=== PATIENT | male | born 1935 | race Caucasian/White ===

== ENCOUNTER 2019-10-25 09:49 | Outpatient (CLI) | payer MEDICARE, OTHER, SELFPAY ==
--- NOTE | ~2019-10-25 | CT_ITS ---
EXAMINATION: CT soft tissue neck w con DATE: 10/25/2019 10:43 INDICATION: Chronic hoarseness. Dysphagia. TECHNIQUE: Computed tomography (CT) of the neck was performed with 75 mL Omnipaque-350 intravenous co ntrast. Automated exposure control and iterative reconstruction technique were employed. The dose-leif gth product was 629.69 mGy-cm. COMPARISON: Chest 2 views 07/19/2017 FINDINGS: There are moderate-sized right and small left pleural effusions. There is mild atelectasis in the visualized portions of the lungs. Calcified left lung nodules and calcified mediastinal lymph nodes are consistent with old granulomatous disease. There is no cervical lymphadenopathy. There is m ild mucosal thickening in the paranasal sinuses. There is moderate cervical spondylosis. There are br idging endplate osteophytes at multiple levels in the spine, consistent with diffuse idiopathic skele fernando hyperostosis (DISH). IMPRESSION: 1. No etiology for the patient's symptoms. 2. Moderate-sized right and small left pleural effusions. Reviewed, dictated and finalized at location A. 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
[2019-10-25 10:29] LABS: Estimated Glomerular Filt Rate 58
== END 2019-10-25 09:50 | disposition home or self-care (01) ==
PROVIDERS: PCP Internal Medicine; Visit Provider Internal Medicine
DX: R13.10 Dysphagia, unspecified (principal); R49.0 Dysphonia
CPT/HCPCS: 70491; Q9965

== ENCOUNTER 2020-01-18 09:36 | Outpatient (CLI) | payer MEDICARE, OTHER, SELFPAY ==
--- NOTE | ~2020-01-18 | XR_ITS ---
EXAMINATION: XR chest 2V DATE: 01/18/2020 11:06 INDICATION: Congestive heart failure. TECHNIQUE: Frontal and lateral views of the chest were obtained. COMPARISON: Chest 2 views 07/19/2017 FINDINGS: There is a moderate-sized right pleural effusion. There is a small left pleural effusion. T here are airspace opacities at the lung bases, right worse than left. No pneumothorax. The heart size is normal. IMPRESSION: 1. Moderate-sized right and small left pleural effusions. 2. Airspace opacities at the lung bases, consistent with atelectasis or less likely pneumonia. Reviewed, dictated and finalized at location A. IMPRESSION: 1. Moderate-sized right and small left pleural effusions. 2. Airspace opacities at the lung bases, consistent with atelectasis or less li makenzie pneumonia.
--- NOTE | 2020-01-18 09:50 | ECHO_ITS ---
Patient Info Name: Noel Pierre Age: 84 years : 1935 Gender: Male Ht: 73 in Wt: 220 lbs BSA: 2.29 m2 HR: 123 bpm BP: 185 / 85 mmHg Heart Rhythm: Sinus Rhythm Technical Quality: Fair Exam Date: 01/18/2020 9:50 AM Exam Location: [facility] Patient Status: Outpatient Admit Date: 01/18/2020 Staff Ordering Physician: Audra Myers MD Mosaic Tile Maker: Sangeetha Jones RDCS Attending Provider: Audra Myers MD Referring Physician: Louis BOWERS; Exam Type: CA echo dop color flow w con Study Info Indications I50.22 - Chronic systolic (congestive) heart failure Complete two-dimensional, color flow and Doppler transthoracic echocardiogram is performed. Strain analysis performed. History/Risk Factors Hypertension: Yes Dyslipidemia: Yes Congenital Heart Disease (CHD): No Peripheral Arterial Disease (PAD): No Myocardial Infarction (CT): No Chronic Lung Disease: No Obesity: Yes Renal Disease: No Coronary Artery Disease (CAD) Yes Congestive Heart Failure (CHF): Hx CHF Cardiomyopathy/LV Systolic Dysfunction: No Diabetes Mellitus: No COPD: On Meds Tobacco Use: Former Cerebrovascular Disease: No Deep Vein Thrombosis (DVT): None Dialysis: None Frailty Scale (CSHA): 4: Vulnerable Cardiac Arrest: No Prior Interventions Pacemaker: No PCI: No CABG: No ICD: No PV Intervention: None Heart Transplant: No Summary 1. Left ventricular chamber dimension is normal. 2. Definity contrast administered improved wall motion interpretation. 3. Left ventricular systolic function is normal, estimated at 50-55%. 4. The left ventricular diastolic function is grade III diastolic dysfunction. 5. E/e' 21 is elevated. 6. Left atrial chamber dimension is moderately enlarged. 7. Right atrial chamber dimension is moderately enlarged. 8. There is trace aortic valve regurgitation. 9. There is moderate mitral valve regurgitation. 10. There is mild to moderate tricuspid valve regurgitation. 11. Mild pulmonary hypertension, estimated pulmonary arterial systolic pressure is 44 mmHg. 12. There is trace pulmonic regurgitation. 13. Linear artifact in IVC, consider catheter in IVC. Left Ventricle E/e' 21 is elevated. Definity contrast administered improved wall motion interpretation. Left ventricular chamber dimension is normal. Left ventricular systolic function is normal, estimated at 50-55%. The left ventricular diastolic function is grade III diastolic dysfunction. Right Ventricle Right ventricular chamber dimension is normal. Right ventricular systolic function is normal. Left Atria Left atrial chamber dimension is moderately enlarged. Right Atria Right atrial chamber dimension is moderately enlarged. Aortic Valve The aortic valve is trileaflet. There is no aortic valve stenosis. There is trace aortic valve regurgitation. Pulmonic Valve There is trace pulmonic regurgitation. Mitral Valve There is no mitral valve stenosis. There is moderate mitral valve regurgitation. Tricuspid Valve There is mild to moderate tricuspid valve regurgitation. Mild pulmonary hypertension, estimated pulmonary arterial systolic pressure is 44 mmHg. Pericardium/Pleural There is no pericardial effusion. Inferior Vena Cava Normal inferior vena cava with >50% collapse upon inspiration consistent with normal right atrial pressure, 5 mmHg. Linear artif
[2020-01-18 10:00] LABS: Appearance Urine Clear (Clear); Basophils Absolute Auto 0.03 K/mm3 (0.00-0.10); Basophils Percent Auto 0.7 % (0.0-1.0); Bilirubin Urine Negative (Negative); Color Urine Yellow (Yellow); Eosinophils Absolute Auto 0.17 K/mm3 (0.02-0.50); Eosinophils Percent Auto 3.8 % (1.0-6.0); Glucose Urine UA Negative (Negative); Hematocrit 36.8 % (37.0-46.0); Hemoglobin 12.4 g/dL (12.4-15.3); Immature Granulocyte Absolute 0.01 K/mm3 (0.00-0.00); Immature Granulocyte Percent A 0.2 % (0.0-0.0); Ketones Urine Negative (Negative); Leukocyte Esterase Ur Negative LEU/UL (Negative); Lymphocytes Absolute Auto 0.88 K/mm3 (1.10-4.50); Lymphocytes Percent Auto 19.7 % (18.0-42.0); Mean Corpuscular HGB Conc 33.7 g/dL (32.0-36.0); Mean Corpuscular Hemoglobin 32.8 pg (27.0-31.0); Mean Corpuscular Volume 97.4 fL (78.0-102.0); Mean Platelet Volume 10.4 fl (8.7-11.0); Monocytes Absolute Auto 0.41 K/mm3 (0.10-0.90); Monocytes Percent Auto 9.2 % (2.0-11.0); Neutrophils Percent Auto 66.4 % (50.0-70.0); Nitrate Urine Negative (Negative); Platelet Count Result 184 K/mm3 (150-420); Protein Urine Trace (Negative); Red Blood Count 3.78 M/mm3 (4.70-6.10); Specific Grav Ur 1.025 (1.010-1.020); Urobilinogen Urine 0.2 mg/dL (0.2-1.0); White Blood Count 4.5 K/mm3 (4.8-10.8)
[2020-01-18 10:04] LABS: Hemoglobin A1C 5.7 % (<5.7)
[2020-01-18 10:11] LABS: BNP 476 pg/mL (0-100); Creatinine Urine 116.82 mg/dL (40-278)
[2020-01-18 10:18] LABS: Add Urine Microscopic? YES; Bacteria Urine Trace /hpf; Blood Urine Trace-Intact (Negative); RBC Urine 0-2 /hpf (0-2); Squamous Epithelial Cell Urine Few /hpf (Few); WBC Urine 0-3 /hpf (0-3)
[2020-01-18 10:19] LABS: Microalbumin Urine Random 15.3 mg/L
[2020-01-18 10:37] LABS: Alanine Aminotransferase 19 U/L (16-63); Alkaline Phosphatase 140 U/L (46-116); Anion Gap 11.5 mmol/L (7-16); Aspartate Amino Transferase 15 U/L (15-37); Bilirubin,Total 0.4 mg/dL (0.00-1.00); Blood Urea Nitrogen 12 mg/dL (7-18); Carbon Dioxide 27 mmol/L (21-32); Chloride 109 mmol/L (98-108); Cholesterol 98 mg/dL (0-200); Creatine Kinase 39 U/L (39-308); Estimated Glomerular Filt Rate > 60; Ferritin 235 ng/mL (26-388); Glucose 100 mg/dL (70-99); HDL Direct 39 mg/dL (40-60); Iron 59 ug/dL (65-175); LDL Cholesterol Calculated 50 mg/dL (<130); Osmolality Calculated 297 mOsm/kg (285-295); Percent Iron Saturation 34 % (12-57); Potassium 3.5 mmol/L (3.5-5.1); Sodium 144 mmol/L (136-145); Total Protein 6.6 g/dL (6.4-8.2); Triglycerides 44 mg/dL (0-150)
== END 2020-01-18 09:37 | disposition home or self-care (01) ==
LOC: CHSIMG 09:38
PROVIDERS: PCP Internal Medicine; Visit Provider Internal Medicine
DX: E78.2 Mixed hyperlipidemia (principal); I50.22 Chronic systolic (congestive) heart failure; R73.01 Impaired fasting glucose; D50.9 Iron deficiency anemia, unspecified; I11.0 Hypertensive heart disease with heart failure
CPT/HCPCS: 36415; 71046; 80053; 80061; 81001; 82043; 82550; 82728; 83036; 83540; 83550; 83880; 85025; C8929

== ENCOUNTER 2020-01-31 07:35 | Outpatient (CLI) | payer MEDICARE, OTHER, SELFPAY ==
--- NOTE | ~2020-01-31 | CT_ITS ---
EXAMINATION:CT chest w con DATE: 01/31/2020 08:03 INDICATION: Pleural effusion. TECHNIQUE: Computed tomography (CT) of the chest was performed with 75 mL Omnipaque 350 intravenous c ontrast. Automated exposure control and iterative reconstruction technique were employed. The dose-le ngth product (DLP) was 308.04 mGy-cm. COMPARISON: Chest 2 views 01/18/2020 FINDINGS: There are moderate-sized right and small left pleural effusions. There are airspace opaciti es in right middle lobe and right lower lobe with volume loss, likely atelectasis. A calcified left l frida nodule and calcified left hilar and mediastinal lymph nodes are consistent with old granulomatous disease. There is a 4 mm nodule at left major fissure, likely benign. There is mild dependent atelec tasis in left lung. There is bilateral gynecomastia. The heart size is normal. There are coronary art kaur calcifications. No pericardial effusion. There are surgical changes of the stomach and small wade l. Partially visualized is a 3.0 cm cyst in left kidney. Partially visualized is a 6.9 x 6.0 cm mass involving the head of the pancreas with small central calcifications. Pneumobilia is noted, likely se condary to sphincterotomy. There are bridging endplate osteophytes at multiple levels in the spine, c onsistent with diffuse idiopathic skeletal hyperostosis (DISH). IMPRESSION: 1. Moderate-sized right and small left pleural effusions. 2. Partially visualized 6.9 cm pancreatic mass with central calcifications. The differential diagnosi s includes serous cystadenoma and neuroendocrine tumor. Abdomen MRI without and with contrast is abilio mmended. Reviewed, dictated and finalized at location A. IMPRESSION: 1. Moderate-sized right and small left pleural effusions. 2. Partially visualized 6.9 cm pancreatic mass with central calcifications. The differential diagnosis includes serous cystadenoma and neuroendocrine tumor. A bdomen MRI without and with contrast is recommended.
== END 2020-01-31 07:36 | disposition home or self-care (01) ==
PROVIDERS: PCP Internal Medicine; Visit Provider Internal Medicine
DX: J90 Pleural effusion, not elsewhere classified (principal)
CPT/HCPCS: 71260; Q9965

== ENCOUNTER 2020-02-28 08:13 | Outpatient (CLI) | payer MEDICARE, OTHER, SELFPAY ==
--- NOTE | ~2020-02-28 | XR_ITS ---
EXAMINATION: XR chest 2V DATE: 02/28/2020 08:44 INDICATION: Congestive heart failure TECHNIQUE: PA and lateral views of the chest are obtained. COMPARISON: 01/18/2020 FINDINGS: A moderate size right pleural effusion persists without significant change. A trace left pl eural effusion is noted. Bibasilar airspace opacities are stable, right greater than left. The heart size is normal. There is no pneumothorax. There are bridging osteophytes at multiple levels in the sp ine, consistent with diffuse idiopathic skeletal hyperostosis (DISH). IMPRESSION: 1. Moderate size right and small left pleural effusions without significant change. 2. Stable bibasilar airspace opacities, consistent with atelectasis or less likely pneumonia. Reviewed, dictated and finalized at location A. IMPRESSION: 1. Moderate size right and small left pleural effusions without significant jimena nge. 2. Stable bibasilar airspace opacities, consistent with atelectasis or less lik adi pneumonia.
[2020-02-28 08:45] LABS: BNP 360 pg/mL (0-100)
[2020-02-28 11:12] LABS: Anion Gap 9.5 mmol/L (7-16); Blood Urea Nitrogen 15 mg/dL (7-18); Carbon Dioxide 29 mmol/L (21-32); Chloride 108 mmol/L (98-108); Estimated Glomerular Filt Rate 56; Glucose 93 mg/dL (70-99); Osmolality Calculated 296 mOsm/kg (285-295); Potassium 3.5 mmol/L (3.5-5.1); Sodium 143 mmol/L (136-145)
== END 2020-02-28 08:14 | disposition home or self-care (01) ==
PROVIDERS: PCP Internal Medicine; Visit Provider Internal Medicine
DX: I50.9 Heart failure, unspecified (principal)
CPT/HCPCS: 36415; 71046; 80048; 83880

== ENCOUNTER 2020-04-17 08:06 | Outpatient (CLI) | payer MEDICARE, OTHER, SELFPAY ==
--- NOTE | ~2020-04-17 | XR_ITS ---
EXAMINATION: XR chest 2V DATE: 04/17/2020 08:34 INDICATION: Pleural effusion. Shortness of breath. TECHNIQUE: Frontal and lateral views of the chest were obtained on 3 radiographs. COMPARISON: Chest 2 views 02/28/2020, chest CT 01/31/2020 FINDINGS: There are moderate-sized right and tiny left pleural effusions. There are airspace opacitie s at the lung bases. No pneumothorax. The heart size is normal. There is a stable compression fractur e at L1. IMPRESSION: 1. Stable moderate-sized right and tiny left pleural effusions. 2. Stable airspace opacities at the lung bases, consistent with atelectasis or less likely pneumonia. Reviewed, dictated and finalized at location B.
[2020-04-17 08:54] LABS: BNP 319 pg/mL (0-100)
[2020-04-17 09:21] LABS: Anion Gap 6 mmol/L (8-16); Blood Urea Nitrogen 15 mg/dL (7-18); Calcium 8.2 mg/dL (8.5-10.1); Carbon Dioxide 28 mmol/L (21-32); Chloride 109 mmol/L (98-108); Estimated Glomerular Filt Rate > 60; Glucose 92 mg/dL (70-99); Osmolality Calculated 296 mOsm/kg (285-295); Potassium 3.8 mmol/L (3.5-5.1); Sodium 143 mmol/L (136-145)
== END 2020-04-17 08:07 | disposition home or self-care (01) ==
LOC: CHSLAB 08:08
PROVIDERS: PCP Internal Medicine; Visit Provider Internal Medicine
DX: J90 Pleural effusion, not elsewhere classified (principal); I50.22 Chronic systolic (congestive) heart failure
CPT/HCPCS: 36415; 71046; 80048; 83880

== ENCOUNTER 2020-07-31 08:59 | Outpatient (CLI) | payer MEDICARE, OTHER, SELFPAY ==
--- NOTE | ~2020-07-31 | XR_ITS ---
EXAMINATION: XR chest 2V DATE: 07/31/2020 09:21 INDICATION: Pleural effusion. TECHNIQUE: Frontal and lateral views of the chest were obtained. COMPARISON: Chest 2 views 04/17/2020 FINDINGS: There are moderate-sized right and small left pleural effusions. There are airspace opaciti es at the lung bases. No pneumothorax. The heart size is normal. There is a chronic compression fract ure of L1. IMPRESSION: 1. Worsened moderate-sized right and small left pleural effusions. 2. Airspace opacities at the lung bases, consistent with atelectasis or less likely pneumonia. Reviewed, dictated and finalized at location B. 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 Worsened moderate-sized right and small left pleural effusions. 2. Airspace opacities at the lung bases, consistent with atelectasis or less li makenzie pneumonia.
[2020-07-31 09:12] LABS: Appearance Urine Clear (Clear); Bilirubin Urine Negative (Negative); Color Urine Yellow (Yellow); Glucose Urine UA Negative (Negative); Ketones Urine Negative (Negative); Leukocyte Esterase Ur Negative (Negative); Nitrate Urine Negative (Negative); Protein Urine Negative (Negative); Urobilinogen Urine 0.2 mg/dL (0.2-1.0); pH Urine 5.5 (5.0-8.0)
[2020-07-31 09:13] LABS: Basophils Absolute Auto 0.04 K/mm3 (0.00-0.10); Basophils Percent Auto 0.8 % (0.0-1.0); Eosinophils Absolute Auto 0.22 K/mm3 (0.02-0.50); Eosinophils Percent Auto 4.6 % (1.0-6.0); Hematocrit 36.6 % (37.0-46.0); Hemoglobin 11.9 g/dL (12.4-15.3); Immature Granulocyte Absolute 0.02 K/mm3 (0.00-0.00); Immature Granulocyte Percent A 0.4 % (0.0-0.0); Lymphocytes Absolute Auto 1.01 K/mm3 (1.10-4.50); Mean Corpuscular HGB Conc 32.5 g/dL (32.0-36.0); Mean Corpuscular Hemoglobin 33.4 pg (27.0-31.0); Mean Corpuscular Volume 102.8 fL (78.0-102.0); Mean Platelet Volume 9.8 fl (8.7-11.0); Monocytes Absolute Auto 0.48 K/mm3 (0.10-0.90); Neutrophils Absolute Auto 3.1 K/mm3 (1.7-7.2); Neutrophils Percent Auto 63.2 % (50.0-70.0); Platelet Count Result 195 K/mm3 (150-420); Red Blood Count 3.56 M/mm3 (4.70-6.10); Red Cell Distribution Width 13.6 % (11.6-14.4); White Blood Count 4.8 K/mm3 (4.8-10.8)
[2020-07-31 09:20] LABS: Add Urine Microscopic? YES; Blood Urine Trace-Intact (Negative); RBC Urine 0-2 /hpf (0-2); Squamous Epithelial Cell Urine Occasional /hpf (Few); WBC Urine 0-3 /hpf (0-3)
[2020-07-31 09:21] LABS: Bacteria Urine Trace /hpf
[2020-07-31 09:24] LABS: Hemoglobin A1C 5.3 % (<5.7)
[2020-07-31 09:33] LABS: BNP 387 pg/mL (0-100)
[2020-07-31 10:02] LABS: Alanine Aminotransferase 17 U/L (16-63); Alkaline Phosphatase 136 U/L (46-116); Anion Gap 8 mmol/L (8-16); Aspartate Amino Transferase 13 U/L (15-37); Bilirubin,Total 0.4 mg/dL (0.00-1.00); Blood Urea Nitrogen 12 mg/dL (7-18); Calcium 8.3 mg/dL (8.5-10.1); Carbon Dioxide 29 mmol/L (21-32); Chloride 107 mmol/L (98-108); Cholesterol 102 mg/dL (0-200); Creatine Kinase 41 U/L (39-308); Estimated Glomerular Filt Rate 60; Ferritin 257 ng/mL (26-388); Glucose 96 mg/dL (70-99); HDL Direct 38 mg/dL (40-60); Iron 53 ug/dL (65-175); LDL Cholesterol Calculated 54 mg/dL (<130); Osmolality Calculated 297 mOsm/kg (285-295); Percent Iron Saturation 27 % (12-57); Prostate Specific Antigen 0.4 ng/mL (< OR = 4.0); Sodium 144 mmol/L (136-145); Total Protein 6.8 g/dL (6.4-8.2); Triglycerides 51 mg/dL (0-150)
== END 2020-07-31 09:00 | disposition home or self-care (01) ==
LOC: CHSLAB 09:01
PROVIDERS: PCP Internal Medicine; Visit Provider Internal Medicine
DX: I50.22 Chronic systolic (congestive) heart failure (principal); I10 Essential (primary) hypertension; R73.01 Impaired fasting glucose; E78.2 Mixed hyperlipidemia; Z12.5 Encounter for screening for malignant neoplasm of prostate; J90 Pleural effusion, not elsewhere classified
CPT/HCPCS: 36415; 71046; 80053; 80061; 81001; 82550; 82728; 83036; 83540; 83550; 83880; 84153; 85025; G0103

== ENCOUNTER 2020-09-23 11:08 | Outpatient (CLI) | payer MEDICARE, OTHER, SELFPAY ==
--- NOTE | ~2020-09-23 | XR_ITS ---
XR chest 2V DATE: 09/23/2020 11:37 INDICATION: Shortness of breath, weakness. Congestive heart failure. TECHNIQUE: 2 views COMPARISON: 07/31/2020 2 view chest FINDINGS: Moderate right pleural effusion, mildly diminished in size since 08/10/2020. There is assoc iated right lower lung infiltrate and/atelectasis. The lungs are otherwise clear. Bilateral hyperinflation. Borderline heart size. Coronary artery calcification. Aortic calcification. Diffuse osteopenia. [id number] anterior wedging of approximately L1, chronic. IMPRESSION: Moderate right pleural effusion, mildly improved since 07/31 2020; right basilar infiltrat e/atelectasis Reviewed, dictated and finalized at location A. 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
[2020-09-23 11:20] LABS: Basophils Absolute Auto 0.05 K/mm3 (0.00-0.10); Eosinophils Percent Auto 4.2 % (1.0-6.0); Hematocrit 37.7 % (37.0-46.0); Hemoglobin 12.3 g/dL (12.4-15.3); Immature Granulocyte Absolute 0.01 K/mm3 (0.00-0.00); Immature Granulocyte Percent A 0.2 % (0.0-0.0); Lymphocytes Absolute Auto 0.83 K/mm3 (1.10-4.50); Lymphocytes Percent Auto 17.4 % (18.0-42.0); Mean Corpuscular HGB Conc 32.6 g/dL (32.0-36.0); Mean Corpuscular Hemoglobin 33.7 pg (27.0-31.0); Mean Corpuscular Volume 103.3 fL (78.0-102.0); Mean Platelet Volume 10.1 fl (8.7-11.0); Monocytes Absolute Auto 0.39 K/mm3 (0.10-0.90); Monocytes Percent Auto 8.2 % (2.0-11.0); Neutrophils Absolute Auto 3.3 K/mm3 (1.7-7.2); Platelet Count Result 187 K/mm3 (150-420); Red Blood Count 3.65 M/mm3 (4.70-6.10); Red Cell Distribution Width 13.7 % (11.6-14.4); White Blood Count 4.8 K/mm3 (4.8-10.8)
[2020-09-23 11:40] LABS: BNP 345 pg/mL (0-100)
[2020-09-23 12:09] LABS: Anion Gap 9 mmol/L (8-16); Blood Urea Nitrogen 13 mg/dL (7-18); Calcium 7.7 mg/dL (8.5-10.1); Carbon Dioxide 25 mmol/L (21-32); Chloride 108 mmol/L (98-108); Estimated Glomerular Filt Rate 60; Ferritin 286 ng/mL (26-388); Glucose 119 mg/dL (70-99); Iron 79 ug/dL (65-175); Osmolality Calculated 295 mOsm/kg (285-295); Percent Iron Saturation 42 % (12-57); Potassium 3.7 mmol/L (3.5-5.1); Sodium 142 mmol/L (136-145)
[2020-09-23 12:16] LABS: Appearance Urine Clear (Clear); Bilirubin Urine Negative (Negative); Color Urine Yellow (Yellow); Glucose Urine UA Negative (Negative); Ketones Urine Negative (Negative); Leukocyte Esterase Ur Negative LEU/UL (Negative); Nitrate Urine Negative (Negative); Protein Urine Negative (Negative); Specific Grav Ur 1.025 (1.010-1.020); Urobilinogen Urine 0.2 mg/dL (0.2-1.0)
[2020-09-23 12:25] LABS: Add Urine Microscopic? YES; Blood Urine Trace-Intact (Negative); RBC Urine None seen /hpf (0-2); Squamous Epithelial Cell Urine Rare /hpf (Few); WBC Urine None seen /hpf (0-3)
[2020-09-23 12:26] LABS: Bacteria Urine None seen /hpf
== END 2020-09-23 11:09 | disposition home or self-care (01) ==
LOC: CHSLAB 11:10
PROVIDERS: PCP Internal Medicine; Visit Provider Internal Medicine
DX: N39.0 Urinary tract infection, site not specified (principal); I50.9 Heart failure, unspecified; D50.9 Iron deficiency anemia, unspecified
CPT/HCPCS: 36415; 71046; 80048; 81001; 82728; 83540; 83550; 83880; 85025

== ENCOUNTER 2021-01-20 06:43 | Inpatient (IN) | payer MEDICARE, OTHER, SELFPAY ==
[2021-01-20] VITALS (25 sets, daily range): BP systolic 90–117; BP diastolic 56–78; PULSE 70–138; RESP 9–25; TEMP 35.9–36.4; O2SAT 98–100
--- NOTE | 2021-01-20 | ECHO_ITS ---
Patient Info Name: Noel Pierre Age: 85 years : 1935 Gender: Male Ht: 70 in Wt: 218 lbs BSA: 2.24 m2 Heart Rhythm: Atrial Fibrillation Technical Quality: Poor Exam Date: 01/20/2021 1:00 PM Exam Location: [facility] Patient Status: Inpatient Admit Date: 01/20/2021 Staff Ordering Physician: Willis Corbett MD Balance Wheel Screw Hole Driller: Becca Wilkinson RDCS Attending Provider: Grace Tyson M.A., MD Exam Type: CA echo doppler color flow Study Info Indications R07.89 - Other chest pain Complete two-dimensional, color flow and Doppler transthoracic echocardiogram is performed with contrast to opacify the left ventricle and to improve the deliniation of the left ventricle endocardial borders. Contrast/Agitated Saline Contrast/Ag. Saline: Definity Amount: 4.00 ml History/Risk Factors Hypertension: Yes Dyslipidemia: Yes Congenital Heart Disease (CHD): No Peripheral Arterial Disease (PAD): No Myocardial Infarction (PR): No Chronic Lung Disease: No Obesity: Yes Renal Disease: No Coronary Artery Disease (CAD) Yes Congestive Heart Failure (CHF): Hx CHF Cardiomyopathy/LV Systolic Dysfunction: No Diabetes Mellitus: No COPD: On Meds Tobacco Use: Former Cerebrovascular Disease: No Deep Vein Thrombosis (DVT): None Dialysis: None Frailty Scale (CSHA): 4: Vulnerable Cardiac Arrest: No Prior Interventions Pacemaker: No PCI: No CABG: No ICD: No PV Intervention: None Heart Transplant: No Summary 1. Contrast injected to improve visualization. 2. Left ventricular chamber dimension is mildly enlarged. 3. Left ventricular systolic function is moderately reduced, estimated at 35-40%. 4. There is mild aortic valve sclerosis. 5. There is trace mitral valve regurgitation. 6. Biatrial dilation right greater than left. 7. compared with 2017 not much change. Left Ventricle Left ventricular chamber dimension is mildly enlarged. Left ventricular systolic function is moderately reduced, estimated at 35-40%. The left ventricular diastolic function is indeterminate. Contrast injected to improve visualization. Right Ventricle Right ventricular chamber dimension is mildly enlarged. Left Atria Left atrial chamber dimension is mildly enlarged. Right Atria Right atrial chamber dimension is moderately enlarged. Aortic Valve The aortic valve is trileaflet. There is mild aortic valve sclerosis. Pulmonic Valve The pulmonic valve is normal. Mitral Valve The mitral valve has normal leaflets. There is trace mitral valve regurgitation. The mitral valve annulus is mildly calcified. Tricuspid Valve The tricuspid valve leaflets are normal. Pericardium/Pleural The pericardium appears normal. Aorta The aortic root size at the sinus of Valsalva is normal. Left Ventricular Outflow Tract Name Value Normal LVOT 2D LVOT Diameter 2.2 cm LVOT Doppler LVOT Peak Velocity 70 cm/s LVOT Peak Gradient 2 mmHg
--- NOTE | ~2021-01-20 | XR_ITS ---
EXAMINATION: XR chest 2V DATE: 01/20/2021 07:25 INDICATION: Chest pain. Weakness. TECHNIQUE: Frontal and lateral views of the chest were obtained. COMPARISON: Chest 2 views 09/23/2020, chest CT 01/31/2020 FINDINGS: There is a moderate-sized right pleural effusion. There are airspace opacities at right nicole g base. No pneumothorax. The heart size is normal. IMPRESSION: 1. Chronic moderate-sized right pleural effusion. 2. Stable airspace opacities at right lung base, consistent with atelectasis versus pneumonia. Reviewed, dictated and finalized at location A. IMPRESSION: 1. Chronic moderate-sized right pleural effusion. 2. Stable airspace opacities at right lung base, consistent with atelectasis ve rsus pneumonia.
--- NOTE | 2021-01-20 06:52 | ECG_ITS ---
Measurements Intervals [place] Rate: 118 P: CA: 0 QRS: -74 QRSD: 148 T: 82 QT: 360 QTc: 506 Interpretive Statements ATRIAL FIBRILLATION WITH RAPID VENTRICULAR RESPONSE VENTRICULAR PREMATURE COMPLEX LEFT BUNDLE BRANCH BLOCK ABNORMAL ECG Electronically Signed On 01-20-2021 6:54:10 CDT by Izaiah Pathak D.O.
[2021-01-20 07:25] LABS: Basophils Percent Auto 0.6 % (0.2-1.2); Eosinophils Absolute Auto 0.2 K/mm3 (0-0.3); Eosinophils Percent Auto 3.2 % (0-4.4); Hematocrit 34.4 % (42.0-52.0); Hemoglobin 11.1 g/dL (14.0-18.0); Immature Granulocyte Absolute 0.01 K/mm3 (0.00-0.031); Immature Granulocyte Percent A 0.2 % (0-0.5); Lymphocytes Absolute Auto 0.83 K/mm3 (0.9-3.2); Lymphocytes Percent Auto 16.4 % (18.3-44.2); Mean Corpuscular HGB Conc 32.3 g/dl (32-36); Mean Corpuscular Hemoglobin 33.8 pg (26-34); Mean Corpuscular Volume 104.9 fl (80-100); Mean Platelet Volume 10.4 fl (7.4-10.4); Monocytes Absolute Auto 0.5 K/mm3 (0.1-0.6); Monocytes Percent Auto 10.3 % (2.6-8.5); Neutrophils Absolute Auto 3.5 K/mm3 (1.3-6.7); Neutrophils Percent Auto 69.3 % (45.5-73.1); Platelet Count Result 158 k/mm3 (150-375); Red Blood Count 3.28 M/mm3 (4.6-6.20); Red Cell Distribution Width 13.9 % (11.5-14.5); White Blood Count 5.1 K/mm3 (4.5-10.0)
--- NOTE | 2021-01-20 07:34 | ED.CHESTPAIN ---
HPI - Chest Pain General Chief Complaint: Chest Pain Stated Complaint: CP Time Seen by Provider: 01/20/21 07:15 Source: patient, family, EMS and RN notes reviewed Mode of arrival: EMS Limitations: no limitations History of Present Illness HPI narrative: 85 years old white female brought to the emergency room by ambulance from home with his complaining of chest pain. Patient wake up at 5:30 AM to go to the bathroom, felt lightheadedness, subsequently started having discomfort at left chest, diaphoretic and belching, lasted for 1 hour, currently patient is asymptomatic, rn cardiac showing A. fib with RVR at 144 bpm. Patient on Eliquis, history of coronary stents, hypertension and hyperlipidemia. Related Data Home Medications Medication Instructions Recorded Confirmed apixaban [Eliquis] 5 mg 01/20/21 atorvastatin 10 mg PO DAILY 01/20/21 01/20/21 clopidogrel 75 mg PO DAILY 01/20/21 finasteride 5 mg PO DAILY 01/20/21 furosemide 20 mg PO 6XW 01/20/21 lisinopril 5 mg PO DAILY 01/20/21 melatonin 3 mg PO DAILY 01/20/21 potassium chloride [Klor-Con M10] 20 meq PO DAILY 01/20/21 01/20/21 tamsulosin 0.8 mg PO DAILY 01/20/21 Allergies Allergy/AdvReac Type Severity Reaction Status Date / Time No Known Allergies Allergy Verified 01/20/21 06:50 Review of Systems Review of Systems: Narrative: CONSTITUTIONAL: Denies fever, chills, or sweats. EYES: Denies visual changes, redness, or discharge. ENT: Denies rhinorrhea, congestion, sore throat, or otalgia. CARDIOVASCULAR: Denies chest pain, palpitations, or edema. RESPIRATORY: Denies cough or dyspnea. GASTROINTESTINAL: Denies abdominal pain, nausea, vomiting, or diarrhea. GENITOURINARY: Denies dysuria or hematuria. SKIN: Denies rash or itching. MUSCULOSKELETAL: Denies back pain, joint pain, or myalgia. NEUROLOGIC: Denies headache, numbness, or weakness. PSYCHIATRIC: Denies anxiety or depression. Exam Narrative: Exam Narrative: General appearance: Well-developed, well-nourished Skin: Normal color Head: Normocephalic, nontraumatic Eyes: Clear conjunctiva ENT: Oropharynx normal, ears normal, nose normal Neck: Supple, nontender Chest and respiratory: Airway patent, no respiratory distress, no accessory muscle use Heart: Tachycardia, irregular irregularity Abdomen: Soft, nontender, no organomegaly, quiet bowel sounds Vascular: Normal peripheral pulses, normal capillary refill. Musculoskeletal: Normal range of motion, nontender back Neurologic: Alert and oriented ?3, CATSHOVEL DRIVER is normal as tested, no gross motor deficit Course Course Emergency Course: Stable Vital Signs Vital signs: Vital Signs Temperature 36.4 C 01/20/21 06:41 Pulse Rate 132 H 01/20/21 06:41 Respiratory Rate 18 01/20/21 06:41 Blood Pressure 114/77 01/20/21 06:41 Pulse Oximetry 100 01/20/21 06:41 Temperature 36.4 C 01/20/21 06:41 Pulse Rate 116 H 01/20/21 07:39 Respiratory Rate 18 01/20/21 06:41 Blood Pressure 104/70 01/20/21 07:39 Pulse Oximetry 100 01/20/21 06:41 MDM - Chest Pain MDM Narrative Medical decision making narrative: Rapid A. fib is my concern for patient symptoms on arrival to the emergency room. Labs, EKG, chest x-ray ordered. Further plan to follow Differential Diagnosis Differential diagnosis: Likely stable angina, atypical chest pain, chest pain and other (A. fib with RVR) Lab Data Result diagrams: 01/20/21 07:20 01/20/21 07:20 Labs: Lab Results 01/20/21 01/20/21 01/20/21 Range/Units 07:20 07:20 07:20 WBC 5.1 (4.5-10.0) K/mm3 RBC 3.28 L (4.6-6.20) M/mm3 Hgb 11.1 L (14.0-18.0) g/dL Hct 34.4 L (42.0-52.0) % MCV
[2021-01-20 07:35] LABS: Anion Gap 6 mmol/L (8-16); Blood Urea Nitrogen 18 mg/dL (9-20); Calcium 8.3 mg/dL (8.4-10.2); Carbon Dioxide 21 mmol/L (22-30); Chloride 114 mmol/L (98-107); Estimated CRCL calculation 41 ml/min; Estimated Glomerular Filt Rate 48; Glucose 95 mg/dL (75-110); Potassium 3.7 mmol/L (3.4-5.0); Sodium 141 mmol/L (137-145)
[2021-01-20 07:37] LABS: INR 1.1; Prothrombin Time 15.2 Seconds (11.1-14.7)
[2021-01-20] MEDS: ASPIRIN 81 MG CHEWABLE TABLET 324 MG PO (07:42)
[2021-01-20] MEDS: dilTIAZem HCl INJ 25 MG/5 ML VIAL 10 MG IV PUSH (07:42)
[2021-01-20 07:47] LABS: Troponin I 0.016 ng/mL (0.000-0.034)
[2021-01-20] MEDS: SODIUM CHLORIDE 0.9% IV 1,000 ML 500 ML IV CONT (08:08)
--- NOTE | 2021-01-20 08:45 | PC.NURSE ---
attempted to call report, rn not avaiable
--- NOTE | 2021-01-20 09:14 | ADMGEN ---
This patient, Noel Pierre, was admitted to IMU Room 201-01. Patient/family oriented to hospital policies and general routines including ID bracelet, bed and alarms, visiting hours, pain management, procedures, bathroom and other care routines, personal items, smoking policy, room service/diet, and visiting hours. Information on how to activate the Rapid Response Team has been discussed. Patient/Family are encouraged to report perceived risks to care and to ask questions if they do not understand what they are told or what they should do.
--- NOTE | 2021-01-20 09:53 | PM.CNCAR ---
Assessment and Plan Assessment and plan (1) Atrial fibrillation with rapid ventricular response: Code(s): I48.91 - Unspecified atrial fibrillation Status: Acute Assessment and Plan: 85-year-old male with CAD, history of multiple PCI/stenting (last intervention with placement of 2.5 x 24 mm Promus everolimus eluting stent in the distal RCA extending into the RPDA on 05/12/2017); ischemic cardiomyopathy (LVEF 30% from 05/14/2017 echo); hypertension, atrial fibrillation on anticoagulation with apixaban (history of DC cardioversion on 06/22/2017). Patient presented to hospital this morning with complaints of chest discomfort, diaphoresis, dizziness. He was found to be in atrial fibrillation with RVR. Patient was unable to tolerate IV diltiazem due to hypotension. On telemetry, his heart rate is in 110s to 120s. Chest pain has resolved. EKG showed AFib with RVR, no acute ST segment abnormality. First set of troponin is negative. -start IV amiodarone; monitor heart rate closely. If patient's heart rate is difficult to control and/or if he has hemodynamically unstable AFib with RVR, then will proceed with DC cardioversion. Patient has been on chronic anticoagulation with apixaban, and has been compliant with anticoagulation, therefore, TRAY may not be necessary before cardioversion. -hold lisinopril for now -monitor on telemetry (2) Chest pain: Qualifiers: Chest pain type: unspecified Qualified Code(s): R07.9 - Chest pain, unspecified Code(s): R07.9 - Chest pain, unspecified Status: Acute Assessment and Plan: Chest discomfort happen in the setting of AFib with RVR. Low-dose aspirin Low-dose beta-fannie, monitor heart rate and blood pressure closely Statin Trend troponins Check echo History of Present Illness History of Present Illness Consult date/time: 01/20/21 09:53 Date of consult: 01/20/2021 Reason for consult: AFib with RVR, chest pain Requesting physician: MD Colin Chief complaint: Chest pain HPI: 85-year-old male with CAD, history of multiple PCI/stenting (last intervention with placement of 2.5 x 24 mm Promus everolimus eluting stent in the distal RCA extending into the RPDA on 05/12/2017); ischemic cardiomyopathy (LVEF 30% from 05/14/2017 echo); hypertension, atrial fibrillation on anticoagulation with apixaban (history of DC cardioversion on 06/22/2017). Patient [facility] on 01/20/[facility]21 via EMS with complaints of chest pain, associated with diaphoresis, dizziness, belching. Patient states that he started having mild chest discomfort at 5:30 a.m. in the morning, associated with diaphoresis, dizziness without syncope. At baseline, he does not have any significant shortness of breath. Patient states that he does his yard work without any major limitations. He denied baseline angina since last intervention. His heart rate was found to be 132 beats per minute in the ER, blood pressure 114/77, afebrile, saturating 100%. EKG on my personal evaluation showed atrial fibrillation with RVR, ventricular rate 118 beats per minute. Patient was initiated on IV diltiazem, which was later discontinued due to drop in the systolic blood pressure. First set of troponins negative. NTproBNP is mildly elevated at 345. Creatinine elevated at 1.4, baseline 1.1. Chest x-ray showed Chronic moderate-sized right pleural effusion, stable airspace opacities at right lung base, consistent with atelectasis versus pneumonia. On telemetry, patient has been in atrial fibrillation with RVR with heart rates in 110s to 120s. At present, he denies any ongoing symptoms of chest discomfort. Reason For Visit: Chest pain, A. fib with RVR, dehydration Review of Systems Review of Systems: Narrative: General: Generalized fatigue Psychological: Negative for anxiety, depression Ophthalmic: negative for loss of vision ENT: Negative for epistaxis, headaches; positive for decreased hearing Allergy and
--- NOTE | 2021-01-20 10:04 | PM.IMHP ---
H&P: HPI History of Present Illness Date/Time: 01/20/21 10:04 Chief Complaint: chest pain Narrative: 85 years old male with past medical history of hypertension AFib presented to the hospital with chest pain sudden-onset discomfort like associated with sweating and belching lasted for 1 hour associated with lightheadedness no aggravating or relieving factor at the ER patient was found to have AFib with RVR at rate of 144 started on Cardizem drip patient at home on metoprolol and Eliquis chest x-ray shows chronic pleural effusion moderate on the right side chronic atelectasis/ infiltrate Review of Systems Review of Systems: All systems reviewed & are unremarkable except as noted in HPI and below PMFSH Past Medical History Medical History Atrial fibrillation CAD (coronary artery disease) Ischemic cardiomyopathy Surgical History Surgical History (Updated 01/20/21 @ 10:24 by Willis Corbett MD) History of pancreatic surgery Social History Social History Smoking status: Never smoker Alcohol intake: never Substance use: never Substance use type: does not use Gender identity (if verbalized by the patient): Male Spiritual care concerns: No Meds Home Medications and Allergies Home Medications Medication Instructions Recorded Confirmed Type apixaban [Eliquis] 5 mg PO BID 01/20/21 01/20/21 History atorvastatin 10 mg PO HS 01/20/21 01/20/21 History ferrous sulfate 325 mg PO DAILY 01/20/21 01/20/21 History finasteride 5 mg PO HS 01/20/21 01/20/21 History furosemide 20 mg PO 6XW 01/20/21 01/20/21 History lisinopril 5 mg PO DAILY 01/20/21 01/20/21 History melatonin 3 mg PO HS 01/20/21 01/20/21 History metoprolol succinate 12.5 mg PO DAILY 01/20/21 01/20/21 History potassium chloride [Klor-Con M10] 10 meq PO BID 01/20/21 01/20/21 History tamsulosin 0.4 mg PO BID 01/20/21 01/20/21 History Allergies Allergy/AdvReac Type Severity Reaction Status Date / Time No Known Allergies Allergy Verified 01/20/21 06:50 Vital Signs Vital Signs - 24 hr 01/20/21 06:41 01/20/21 06:48 01/20/21 07:01 Temperature 97.6 F Pulse Rate 132 H 137 H 138 H Respiratory Rate 18 18 25 H Blood Pressure 114/77 Pulse Oximetry 99 01/20/21 07:15 01/20/21 07:27 01/20/21 07:30 Temperature Pulse Rate 109 H 110 H 121 H Respiratory Rate 19 12 23 H Blood Pressure 97/58 L Pulse Oximetry 01/20/21 07:31 01/20/21 07:39 01/20/21 07:45 Temperature Pulse Rate 111 H 116 H 117 H Respiratory Rate 18 15 Blood Pressure 104/70 104/70 Pulse Oximetry 01/20/21 07:56 01/20/21 09:10 01/20/21 09:25 Temperature 96.8 F L Pulse Rate 125 H 112 H 119 H Respiratory Rate 9 L 18 16 Blood Pressure 90/66 L 102/78 109/72 Pulse Oximetry 99 100 Exam Const: General: comfortable HENMT: Mouth: Yes dry mucous membranes Eyes: Sclera: normal sclerae Neck: Neck: no JVD Resp: Auscultation: clear to auscultation bilaterally Cardio: Rate: tachycardic Rhythm: abnormal rhythm GI: Inspection: non-distended GI Palp: Yes Soft to palpation Skin: General skin exam: normal color Neuro: General: gait normal Psych: Mental Status: mental status grossly normal H&P: Results Labs Labs: Short CBC 01/20/21 Range/Units 07:20 WBC 5.1 (4.5-10.0) K/mm3 Hgb 11.1 L (14.0-18.0) g/dL Hct 34.4 L (42.0-52.0) % Plt Count 158 (150-375) k/mm3 BMP 01/20/21 07:20 Sodium 141 Potassium 3.7 Chloride 114 H Carbon Dioxide 21 L BUN 18 Creatinine 1.40 H Glucose 95 Calcium 8.3 L Cardiac Enzymes 01/20/21 Range/Units 07:20 Troponin I 0.016 (0.000-0.034) ng/mL Assessment and Plan Assessment and plan (1) Chest pain: Qualifiers: Chest pain type: unspecified Qualified Code(s): R07.9 - Chest pain, unspecified Code(s): R07.9 - Chest pain, unspecified Sta
[2021-01-20] MEDS: AMIODARONE 360 MG/D5W 200 ML 360 MG/200 ML BAG 33.33 MG IV CONT (10:30)
[2021-01-20 10:37] LABS: Magnesium 1.8 mg/dL (1.6-2.3)
[2021-01-20] MEDS: POTASSIUM CHLORIDE 10 MEQ TABLET.ER PO ×2 (10:41→17:13)
[2021-01-20] MEDS: METOPROLOL TARTRATE 12.5 MG TABLET PO ×2 (10:41→20:28)
[2021-01-20] MEDS: lisinopriL 5 MG TABLET PO (10:42)
[2021-01-20] MEDS: FERROUS SULFATE 324 MG TABLET PO (10:42)
[2021-01-20] MEDS: TAMSULOSIN HCL 0.4 MG CAPSULE PO ×2 (10:42→17:13)
[2021-01-20] MEDS: APIXABAN 5 MG TABLET PO (10:42)
[2021-01-20 10:47] LABS: Troponin I 0.258 ng/mL (0.000-0.034)
[2021-01-20 11:01] LABS: Free T4 Free Thyroxine 1.53 ng/mL (0.78-2.19)
[2021-01-20] MEDS: DEXTROSE 5%/0.45% SOD CHL 1,000 ML 75 ML IV CONT (11:20)
[2021-01-20] MEDS: AMIODARONE 360 MG/D5W 200 ML 360 MG/200 ML BAG 16.67 MG IV CONT (16:26)
[2021-01-20] MEDS: MELATONIN 3 MG TABLET PO (20:29)
[2021-01-20] MEDS: FINASTERIDE 5 MG TABLET PO (20:29)
[2021-01-20] MEDS: ATORVASTATIN 10 MG TABLET PO (20:29)
[2021-01-20] MEDS: ENOXAPARIN 100 MG/ML SYRINGE 98 MG SUB-Q (20:30)
[2021-01-21] VITALS (18 sets, daily range): BP systolic 103–144; BP diastolic 58–90; PULSE 65–106; RESP 12–20; TEMP 36–36.9; O2SAT 96–100
[2021-01-21] MEDS: DEXTROSE 5%/0.45% SOD CHL 1,000 ML 75 ML IV CONT ×2 (03:00→14:57)
[2021-01-21] MEDS: AMIODARONE 360 MG/D5W 200 ML 360 MG/200 ML BAG 16.67 MG IV CONT ×2 (03:06→14:49)
[2021-01-21] MEDS: METOPROLOL TARTRATE 12.5 MG TABLET PO ×2 (08:39→20:27)
[2021-01-21] MEDS: TAMSULOSIN HCL 0.4 MG CAPSULE PO ×2 (08:39→17:37)
[2021-01-21] MEDS: ASPIRIN 81 MG ENTERIC TABLET PO (08:39)
[2021-01-21] MEDS: lisinopriL 5 MG TABLET PO (08:40)
[2021-01-21] MEDS: FERROUS SULFATE 324 MG TABLET PO (08:40)
[2021-01-21] MEDS: POTASSIUM CHLORIDE 10 MEQ TABLET.ER PO ×2 (08:40→17:37)
[2021-01-21 10:04] LABS: Eosinophils Absolute Auto 0.2 K/mm3 (0-0.3); Eosinophils Percent Auto 3.7 % (0-4.4); Hematocrit 33.2 % (42.0-52.0); Lymphocytes Absolute Auto 0.76 K/mm3 (0.9-3.2); Lymphocytes Percent Auto 18.9 % (18.3-44.2); Mean Corpuscular HGB Conc 33.1 g/dl (32-36); Mean Corpuscular Hemoglobin 34.1 pg (26-34); Mean Corpuscular Volume 102.8 fl (80-100); Mean Platelet Volume 10.7 fl (7.4-10.4); Monocytes Absolute Auto 0.4 K/mm3 (0.1-0.6); Monocytes Percent Auto 9.2 % (2.6-8.5); Neutrophils Absolute Auto 2.7 K/mm3 (1.3-6.7); Neutrophils Percent Auto 67.2 % (45.5-73.1); Platelet Count Result 169 k/mm3 (150-375); Red Blood Count 3.23 M/mm3 (4.6-6.20); Red Cell Distribution Width 13.8 % (11.5-14.5)
--- NOTE | 2021-01-21 10:07 | PM.PNCARD ---
Progress Note: A&P Assessment and Plan (1) Atrial fibrillation with rapid ventricular response: Code(s): I48.91 - Unspecified atrial fibrillation <FERNANDA Vizcarra - Last Filed: 01/21/21 14:55> Status: Acute <FERNANDA Vizcarra - Last Filed: 01/21/21 14:55> Assessment and Plan: 85-year-old male with CAD, history of multiple PCI/stenting (last intervention with placement of 2.5 x 24 mm Promus everolimus eluting stent in the distal RCA extending into the RPDA on 05/12/2017); ischemic cardiomyopathy (LVEF 30% from 05/14/2017 echo); hypertension, atrial fibrillation on anticoagulation with apixaban (history of DC cardioversion on 06/22/2017). Patient presented to hospital this morning with complaints of chest discomfort, diaphoresis, dizziness. He was found to be in atrial fibrillation with RVR. Patient was unable to tolerate IV diltiazem due to hypotension. On telemetry, his heart rate is in 110s to 120s. Chest pain has resolved. EKG showed AFib with RVR, no acute ST segment abnormality. First set of troponin is negative. -Patient is in AFib now rate controlled on IV amiodarone. Heart rate is currently 86. Telemetry did not demonstrate any tachycardia throughout the night. He did have frequent PVCs. Will transition to oral amiodarone. -He denies any chest pain this morning or overnight. Second and third troponin 0.258 and 1.31 respectively. Positive troponins are likely result of his tachycardia. Echocardiogram from yesterday demonstrated moderately reduced left function with an EF estimated at 30-35%. This cardiomyopathy is new-in 2020 echocardiogram revealed an ejection fraction 50-55%. Discussed with the patient that ischemic workup is indicated at this time. Patient would like to pursue left heart catheterization. Will schedule him for either tomorrow afternoon or morning. <FERNANDA Vizcarra - Last Filed: 01/21/21 14:55> (2) Chest pain: Qualifiers: Chest pain type: unspecified Qualified Code(s): R07.9 - Chest pain, unspecified <FERNANDA Vizcarra - Last Filed: 01/21/21 14:55> Code(s): R07.9 - Chest pain, unspecified <FERNANDA Vizcarra - Last Filed: 01/21/21 14:55> Status: Acute <FERNANDA Vizcarra - Last Filed: 01/21/21 14:55> Assessment and Plan: Chest discomfort happen in the setting of AFib with RVR. Low-dose aspirin Low-dose beta-fannie, monitor heart rate and blood pressure closely Statin <FERNANDA Vizcarra - Last Filed: 01/21/21 14:55> Additional Plan I personally saw and evaluated the patient. I reviewed Krala Chun's note and agree with findings and plan of care as documented in the note. <Willis Corbett MD - Last Filed: 02/04/21 08:51> Subjective Date/time seen: 01/21/21 10:07 cardiology follow-up for atrial fibrillation with RVR. Date of service 01/21/2021: Patient resting comfortably in bed and is feeling well this morning. He is denying any chest pain, shortness of breath, palpitations. He does not any complaints of any kind this morning <FERNANDA Vizcarra - Last Filed: 01/21/21 14:55> Review of Systems Review of Systems: All systems reviewed & are unremarkable except as noted in HPI and below <FERNANDA Vizcarra - Last Filed: 01/21/21 14:55> Exam Narrative: Exam Narrative: Elderly male. Alert and oriented x3. Pleasant and cooperative. <FERNANDA Vizcarra - Last Filed: 01/21/21 14:55> Const: General: comfortable and no acute distress <FERNANDA Vizcarra - Last Filed: 01/21/21 14:55> HENMT: Head: normal to inspection and normocephalic <FERNANDA Vizcarra - Last Filed: 01/21/21 14:55> Eyes: General: appearance normal, both eyes and all related structures <FERNANDA Vizcarra - Last Filed: 01/21/21 14:55> Neck: Neck: supple and no JVD <Karla Chun APN-Mehran - Last Filed: 01/21/21 14:55> Resp: Effort & Inspection: normal re
[2021-01-21 10:18] LABS: Alanine Aminotransferase 11 U/L (4-50); Albumin Level 2.7 g/dL (3.5-5.1); Alkaline Phosphatase 103 U/L (38-126); Anion Gap 6 mmol/L (8-16); Aspartate Amino Transferase 24 U/L (17-59); Bilirubin,Total < 0.1 mg/dL (0.2-1.3); Blood Urea Nitrogen 17 mg/dL (9-20); Calcium 7.9 mg/dL (8.4-10.2); Carbon Dioxide 20 mmol/L (22-30); Chloride 113 mmol/L (98-107); Estimated CRCL calculation 48 ml/min; Estimated Glomerular Filt Rate 58; Glucose 103 mg/dL (75-110); Potassium 3.3 mmol/L (3.4-5.0); Sodium 139 mmol/L (137-145)
[2021-01-21] MEDS: ENOXAPARIN 100 MG/ML SYRINGE 98 MG SUB-Q ×2 (12:13→20:29)
--- NOTE | 2021-01-21 14:25 | PM.IMPN ---
Progress Note: A&P Assessment and Plan (1) Chest pain: Qualifiers: Chest pain type: unspecified Qualified Code(s): R07.9 - Chest pain, unspecified Code(s): R07.9 - Chest pain, unspecified Status: Acute Assessment and Plan: acute chest pain most likely stable angina secondary to AFib with RVR (2) Atrial fibrillation with rapid ventricular response: Code(s): I48.91 - Unspecified atrial fibrillation Status: Acute Assessment and Plan: AFib with RVR Cardizem drip Cardizem drip continue metoprolol continue lovenox bid (3) Hypertension: Code(s): I10 - Essential (primary) hypertension Status: Acute Assessment and Plan: stable continue home medication except hold diuretics (4) Chronic pleural effusion: Code(s): J90 - Pleural effusion, not elsewhere classified Status: Acute Assessment and Plan: chronic follow-up with pulmonology as outpatient (5) Lung infiltrate: Code(s): R91.8 - Other nonspecific abnormal finding of lung field Status: Acute Assessment and Plan: chronic, no symptoms for PNEUMONIA (6) Pancreatic mass: Code(s): K86.89 - Other specified diseases of pancreas Status: Acute Assessment and Plan: history of pancreatic mass PATIENT HAD WORKUP OUTPATIENT AND HE HAD WHIPPLE PROCEDURE HE SAID HE STILL HAVE THE TUMOR AND HE WAS TOLD THAT THE TUMOR IS SLOWLY GROWING AND NO PLAN FOR FURTHER TREATMENT THE TUMOR IS SLOWLY GROWING follow-up with PCP as outpatient Subjective Date/time seen: 01/21/21 14:25 Review of Systems Review of Systems: All systems reviewed & are unremarkable except as noted in HPI and below Exam Const: General: comfortable Resp: Auscultation: clear to auscultation bilaterally Cardio: Rate: tachycardic Rhythm: abnormal rhythm GI: Inspection: non-distended Skin: General skin exam: normal color Neuro: General: gait normal Psych: Mental Status: mental status grossly normal Objective Data Vital Signs Vital Signs: Vital Signs - 24 hr 01/20/21 16:00 01/20/21 16:26 01/20/21 18:00 Temperature 36.3 C L Pulse Rate 102 H 90 75 Respiratory Rate 20 Blood Pressure 106/72 Pulse Oximetry 100 01/20/21 20:00 01/20/21 20:28 01/20/21 22:00 Temperature 35.9 C L Pulse Rate 95 82 82 Respiratory Rate 18 Blood Pressure 117/56 L Pulse Oximetry 99 01/20/21 23:47 01/21/21 00:00 01/21/21 02:00 Temperature 36.2 C L Pulse Rate 87 71 71 Respiratory Rate 18 Blood Pressure 105/63 Pulse Oximetry 100 01/21/21 03:47 01/21/21 04:00 01/21/21 06:00 Temperature 36.8 C Pulse Rate 78 65 77 Respiratory Rate 16 Blood Pressure 103/62 Pulse Oximetry 96 01/21/21 06:49 01/21/21 08:00 01/21/21 08:39 Temperature 36.0 C L Pulse Rate 82 81 106 H Respiratory Rate 16 Blood Pressure 107/65 Pulse Oximetry 97 01/21/21 10:00 01/21/21 12:00 Temperature 36.6 C Pulse Rate 75 91 Respiratory Rate 12 Blood Pressure 116/70 Pulse Oximetry 100 Intake/Output Intake/Output: Intake & Output 01/18/21 01/19/21 01/20/21 01/21/21 23:59 23:59 23:59 23:59 Intake Total 1320 1200 Output Total 900 Balance 1320 300 Meds/Results Medications: Active Medications Generic Name Dose Route Start Last Admin Trade Name Freq PRN Reason Stop Dose Admin Acetaminophen 650 mg 01/20/21 10:00 Acetaminophen 325 Mg Tablet PO Q4H PRN Mild Pain (1-3) or Fever Al Hydrox/Mg Hydrox/Simethicone 30 ml 01/20/21 10:00 Mag Hydrox/Al Hydrox/Simeth 30 Ml Udc PO QID PRN Dyspepsia Aspirin 81 mg 01/21/21 09:00 01/21/21 08:39 Aspirin 81 Mg Enteric Tablet PO 81 mg QAM [place] Administration Atorvastatin Calcium 10 mg 01/20/21 21:00 01/20/21 20:29 Atorvastatin 10 Mg Tablet PO 10 mg HS [place] Administration Bisacodyl 5 mg 01/20/21 10:00 Bisacodyl 5 Mg Tablet Ec
[2021-01-21] MEDS: FINASTERIDE 5 MG TABLET PO (20:27)
[2021-01-21] MEDS: MELATONIN 3 MG TABLET PO (20:28)
[2021-01-21] MEDS: ATORVASTATIN 10 MG TABLET PO (20:29)
[2021-01-22] VITALS (16 sets, daily range): BP systolic 114–141; BP diastolic 65–74; PULSE 65–100; RESP 16–20; TEMP 36.2–36.6; O2SAT 98–100
[2021-01-22] MEDS: AMIODARONE 360 MG/D5W 200 ML 360 MG/200 ML BAG 16.67 MG IV CONT ×2 (02:37→14:40)
[2021-01-22] MEDS: DEXTROSE 5%/0.45% SOD CHL 1,000 ML 75 ML IV CONT ×2 (03:47→17:02)
[2021-01-22 04:56] LABS: Hematocrit 33.5 % (42.0-52.0); Mean Corpuscular HGB Conc 32.8 g/dl (32-36); Mean Corpuscular Hemoglobin 34.2 pg (26-34); Mean Platelet Volume 11.2 fl (7.4-10.4); Platelet Count Result 177 k/mm3 (150-375); Red Blood Count 3.22 M/mm3 (4.6-6.20); Red Cell Distribution Width 13.8 % (11.5-14.5); White Blood Count 4.4 K/mm3 (4.5-10.0)
[2021-01-22 05:09] LABS: Anion Gap 6 mmol/L (8-16); Blood Urea Nitrogen 16 mg/dL (9-20); Calcium 8.1 mg/dL (8.4-10.2); Carbon Dioxide 19 mmol/L (22-30); Chloride 114 mmol/L (98-107); Estimated CRCL calculation 44 ml/min; Estimated Glomerular Filt Rate 52; Glucose 110 mg/dL (75-110); Potassium 3.5 mmol/L (3.4-5.0); Sodium 139 mmol/L (137-145)
[2021-01-22] MEDS: TAMSULOSIN HCL 0.4 MG CAPSULE PO ×2 (09:04→17:03)
[2021-01-22] MEDS: ENOXAPARIN 100 MG/ML SYRINGE 98 MG SUB-Q (09:04)
[2021-01-22] MEDS: lisinopriL 5 MG TABLET PO (09:05)
[2021-01-22] MEDS: METOPROLOL TARTRATE 12.5 MG TABLET PO ×2 (09:05→20:34)
[2021-01-22] MEDS: ASPIRIN 81 MG ENTERIC TABLET PO (09:05)
[2021-01-22] MEDS: FERROUS SULFATE 324 MG TABLET PO (09:05)
[2021-01-22] MEDS: POTASSIUM CHLORIDE 10 MEQ TABLET.ER PO ×2 (09:05→17:03)
--- NOTE | 2021-01-22 09:32 | PM.PNCARD ---
Progress Note: A&P Additional Plan 85-year-old man with: History of coronary disease previous interventions now with atrial fib and declined left ventricular systolic function. In this setting a follow-up angiogram has been recommended and will take place tomorrow morning. I will discontinue Lovenox after this morning's dose in anticipation of this. Following angiography we will formulate plans regarding attempting cardioversion for this elderly gentleman who is now receiving amiodarone. Cardioversion could potentially take place later during this hospital stay or subsequently as an outpatient. Further recommendations will be pending completion of his angiograms tomorrow. Nikko Woods MD [facility] Subjective Date/time seen: Date of service: 01/22/21 09:32 Interval history: Follow-up visit in this 85-year-old man with: Atrial fibrillation recurrent with RVR. Patient is under good control now with amiodarone. Duration of his atrial fibrillation is unclear. Patient also has coronary artery disease with multiple previous interventions I do not believe any of these were done at this hospital as there are no records of this. He describes procedures probably done at [facility] in the past. Because of echocardiographic evidence of declined left ventricular systolic function follow-up angiography has been recommended and is scheduled for tomorrow morning after he has been off of apixaban for a couple of days. Patient is familiar with angiography and has no questions about that. He had a few questions about the plans regarding management of atrial fibrillation which were discussed in detail. Exam Narrative: Exam Narrative: Elderly male. Alert and oriented x3. Pleasant and cooperative. Const: General: comfortable and no acute distress HENMT: Head: normal to inspection and normocephalic Eyes: General: appearance normal, both eyes and all related structures Neck: Neck: supple and no JVD Resp: Effort & Inspection: normal respiratory effort Auscultation: clear to auscultation bilaterally Cardio: Rate: regular rate Rhythm: abnormal rhythm (Atrial fibrillation) irregularly irregular GI: Auscultation: normal bowel sounds Skin: General skin exam: normal color and rashes and/or lesions noted (Left forearm lacerations and ecchymoses noted.) Neuro: Cognition (Neuro): normal cognition Speech: normal speech Motor exam (neuro): Normal motor muscle tone present throughout Extrem: General: normal to inspection, no edema and no pedal edema Psych: Mental Status: mental status grossly normal Affect: normal affect Objective Data Vital Signs Vital Signs: Vital Signs - 24 hr 01/21/21 10:00 01/21/21 12:00 01/21/21 14:00 Temperature 36.6 C Pulse Rate 75 91 101 H Respiratory Rate 12 Blood Pressure 116/70 Pulse Oximetry 100 01/21/21 16:00 01/21/21 18:00 01/21/21 19:51 Temperature 36.9 C 36.6 C Pulse Rate 95 93 96 Respiratory Rate 12 20 Blood Pressure 144/90 H 124/68 Pulse Oximetry 100 100 01/21/21 20:00 01/21/21 20:27 01/21/21 21:55 Temperature Pulse Rate 77 90 103 H Respiratory Rate Blood Pressure Pulse Oximetry 01/21/21 23:26 01/22/21 00:00 01/22/21 01:28 Temperature 36.4 C Pulse Rate 78 86 78 Respiratory Rate 20 Blood Pressure 114/58 L Pulse Oximetry 97 01/22/21 04:00 01/22/21 06:00 01/22/21 08:00 Temperature 36.6 C 36.6 C Pulse Rate 90 78 91 Respiratory Rate 20 16 Blood Pressure 141/70 H 114/71 Pulse Oximetry 98 100 01/22/21 09:05 Temperature Pulse Rate 79 Respiratory Rate Blood Pressure Pulse Oximetry Intake/Output Intake/Output: Intake & Output 01/19/21 01/20/21 01/21/21 01/22/21 23:59 23:59 23:59 23:59 Intake Total 1320 2400 1500 Output Total 1080 650 Balance 1320 1320 850 Meds/Results Medications: Active Medications Generic Name Dose Route Start Last Admin Trade Name Freq PRN Reason Stop Dose Admin
--- NOTE | 2021-01-22 14:48 | PM.IMPN ---
Progress Note: A&P Assessment and Plan (1) Chest pain: Qualifiers: Chest pain type: unspecified Qualified Code(s): R07.9 - Chest pain, unspecified Code(s): R07.9 - Chest pain, unspecified Status: Acute Assessment and Plan: Acute chest pain most likely stable angina secondary to AFib with RVR pt is due to go to angiogram tomorrow (2) Atrial fibrillation with rapid ventricular response: Code(s): I48.91 - Unspecified atrial fibrillation Status: Acute Assessment and Plan: AFib with RVR with amiodarone drip on amiodarone drip continue metoprolol continue lovenox bid (3) Hypertension: Code(s): I10 - Essential (primary) hypertension Status: Acute Assessment and Plan: stable continue home medication except hold diuretics (4) Chronic pleural effusion: Code(s): J90 - Pleural effusion, not elsewhere classified Status: Acute Assessment and Plan: chronic follow-up with pulmonology as outpatient (5) Lung infiltrate: Code(s): R91.8 - Other nonspecific abnormal finding of lung field Status: Acute Assessment and Plan: chronic, no symptoms for PNEUMONIA (6) Pancreatic mass: Code(s): K86.89 - Other specified diseases of pancreas Status: Acute Assessment and Plan: history of pancreatic mass PATIENT HAD WORKUP OUTPATIENT AND HE HAD WHIPPLE PROCEDURE HE SAID HE STILL HAVE THE TUMOR AND HE WAS TOLD THAT THE TUMOR IS SLOWLY GROWING AND NO PLAN FOR FURTHER TREATMENT THE TUMOR IS SLOWLY GROWING follow-up with PCP as outpatient Subjective Date/time seen: 01/22/21 14:48 Interval history: 85 years old male with past medical history of hypertension AFib presented to the hospital with chest pain sudden-onset discomfort seen by cardiology. Pt is going for angiogram tomorrow. Review of Systems Review of Systems: All systems reviewed & are unremarkable except as noted in HPI and below Exam Const: General: comfortable HENMT: Mouth: Yes dry mucous membranes Eyes: Sclera: normal sclerae Neck: Neck: no JVD Resp: Auscultation: clear to auscultation bilaterally Cardio: Rate: tachycardic Rhythm: abnormal rhythm GI: Inspection: non-distended Skin: General skin exam: normal color Neuro: General: gait normal Psych: Mental Status: mental status grossly normal Objective Data Vital Signs Vital Signs: Vital Signs - 24 hr 01/21/21 16:00 01/21/21 18:00 01/21/21 19:51 Temperature 36.9 C 36.6 C Pulse Rate 95 93 96 Respiratory Rate 12 20 Blood Pressure 144/90 H 124/68 Pulse Oximetry 100 100 01/21/21 20:00 01/21/21 20:27 01/21/21 21:55 Temperature Pulse Rate 77 90 103 H Respiratory Rate Blood Pressure Pulse Oximetry 01/21/21 23:26 01/22/21 00:00 01/22/21 01:28 Temperature 36.4 C Pulse Rate 78 86 78 Respiratory Rate 20 Blood Pressure 114/58 L Pulse Oximetry 97 01/22/21 04:00 01/22/21 06:00 01/22/21 08:00 Temperature 36.6 C 36.6 C Pulse Rate 90 78 89 Respiratory Rate 20 16 Blood Pressure 141/70 H 114/71 Pulse Oximetry 98 100 01/22/21 09:05 01/22/21 10:00 01/22/21 11:57 Temperature 36.3 C L Pulse Rate 79 91 88 Respiratory Rate 18 Blood Pressure 124/74 Pulse Oximetry 100 01/22/21 12:00 01/22/21 14:00 Temperature Pulse Rate 94 90 Respiratory Rate Blood Pressure Pulse Oximetry Intake/Output Intake/Output: Intake & Output 01/19/21 01/20/21 01/21/21 01/22/21 23:59 23:59 23:59 23:59 Intake Total 1320 2400 2240 Output Total 1080 1075 Balance 1320 1320 1165 Meds/Results Medications: Active Medications Generic Name Dose Route Start Last Admin Trade Name Hemantq PRN Reason Stop Dose Admin Acetaminophen 650 mg 01/20/21 10:00 Acetaminophen 325 Mg Tablet PO Q4H PRN Mild Pain (1-3) or Fever Al Hydrox/Mg Hydrox/Simethicone 30 ml 01/20/21 10:00 Mag Hydrox/Al Hy
[2021-01-22] MEDS: ATORVASTATIN 10 MG TABLET PO (20:34)
[2021-01-22] MEDS: FINASTERIDE 5 MG TABLET PO (20:34)
[2021-01-22] MEDS: MELATONIN 3 MG TABLET PO (20:35)
[2021-01-23] VITALS (28 sets, daily range): BP systolic 107–145; BP diastolic 50–78; PULSE 45–99; RESP 14–20; TEMP 36.2–36.6; O2SAT 98–100
[2021-01-23] MEDS: AMIODARONE 360 MG/D5W 200 ML 360 MG/200 ML BAG 16.67 MG IV CONT (02:42)
[2021-01-23 04:39] LABS: Eosinophils Absolute Auto 0.2 K/mm3 (0-0.3); Eosinophils Percent Auto 3.6 % (0-4.4); Hemoglobin 10.3 g/dL (14.0-18.0); Immature Granulocyte Absolute 0.01 K/mm3 (0.00-0.031); Immature Granulocyte Percent A 0.2 % (0-0.5); Lymphocytes Absolute Auto 0.85 K/mm3 (0.9-3.2); Lymphocytes Percent Auto 20.6 % (18.3-44.2); Mean Corpuscular HGB Conc 33.2 g/dl (32-36); Mean Corpuscular Hemoglobin 33.8 pg (26-34); Mean Corpuscular Volume 101.6 fl (80-100); Mean Platelet Volume 10.9 fl (7.4-10.4); Monocytes Absolute Auto 0.5 K/mm3 (0.1-0.6); Monocytes Percent Auto 12.1 % (2.6-8.5); Neutrophils Absolute Auto 2.6 K/mm3 (1.3-6.7); Neutrophils Percent Auto 62.5 % (45.5-73.1); Platelet Count Result 157 k/mm3 (150-375); Red Blood Count 3.05 M/mm3 (4.6-6.20); Red Cell Distribution Width 13.6 % (11.5-14.5); White Blood Count 4.1 K/mm3 (4.5-10.0)
[2021-01-23 04:58] LABS: Anion Gap 5 mmol/L (8-16); Blood Urea Nitrogen 14 mg/dL (9-20); Calcium 7.9 mg/dL (8.4-10.2); Carbon Dioxide 22 mmol/L (22-30); Chloride 113 mmol/L (98-107); Estimated CRCL calculation 41 ml/min; Estimated Glomerular Filt Rate 48; Glucose 114 mg/dL (75-110); Potassium 3.6 mmol/L (3.4-5.0); Sodium 140 mmol/L (137-145)
[2021-01-23] MEDS: DEXTROSE 5%/0.45% SOD CHL 1,000 ML 75 ML IV CONT ×2 (06:26→20:28)
[2021-01-23] MEDS: FERROUS SULFATE 324 MG TABLET PO (07:52)
[2021-01-23] MEDS: TAMSULOSIN HCL 0.4 MG CAPSULE PO ×2 (07:53→18:03)
[2021-01-23] MEDS: ASPIRIN 81 MG ENTERIC TABLET PO (07:53)
[2021-01-23] MEDS: METOPROLOL TARTRATE 12.5 MG TABLET PO ×2 (07:53→20:31)
[2021-01-23] MEDS: lisinopriL 5 MG TABLET PO (07:53)
[2021-01-23] MEDS: POTASSIUM CHLORIDE 10 MEQ TABLET.ER PO ×2 (07:53→18:03)
--- NOTE | 2021-01-23 09:00 | WPDMODSED ---
Moderate Sedation Note-Pt Data Patient Data Allergies Allergy/AdvReac Type Severity Reaction Status Date / Time No Known Allergies Allergy Verified 01/20/21 06:50 Home Medications Medication Instructions Recorded Confirmed Type apixaban [Eliquis] 5 mg PO BID 01/20/21 01/20/21 History atorvastatin 10 mg PO HS 01/20/21 01/20/21 History ferrous sulfate 325 mg PO DAILY 01/20/21 01/20/21 History finasteride 5 mg PO HS 01/20/21 01/20/21 History furosemide 20 mg PO 6XW 01/20/21 01/20/21 History lisinopril 5 mg PO DAILY 01/20/21 01/20/21 History melatonin 3 mg PO HS 01/20/21 01/20/21 History metoprolol succinate 12.5 mg PO DAILY 01/20/21 01/20/21 History potassium chloride [Klor-Con M10] 10 meq PO BID 01/20/21 01/20/21 History tamsulosin 0.4 mg PO BID 01/20/21 01/20/21 History Current Medications: Active Medications Acetaminophen (Acetaminophen 325 Mg Tablet) 650 mg PO Q4H PRN PRN Reason: Mild Pain (1-3) or Fever Al Hydrox/Mg Hydrox/Simethicone (Mag Hydrox/Al Hydrox/Simeth 30 Ml Udc) 30 ml PO QID PRN PRN Reason: Dyspepsia Aspirin (Aspirin 81 Mg Enteric Tablet) 81 mg PO [facility] Last Admin: 01/23/21 07:53 Dose: 81 mg Documented by: Atorvastatin Calcium (Atorvastatin 10 Mg Tablet) 10 mg PO [facility] Last Admin: 01/22/21 20:34 Dose: 10 mg Documented by: Bisacodyl (Bisacodyl 5 Mg Tablet Ec) 5 mg PO DAILY PRN PRN Reason: Constipation Ferrous Sulfate (Ferrous Sulfate 324 Mg Tablet) 324 mg PO DAILY [facility] Last Admin: 01/23/21 07:52 Dose: 324 mg Documented by: Finasteride (Finasteride 5 Mg Tablet) 5 mg PO [facility] Last Admin: 01/22/21 20:34 Dose: 5 mg Documented by: Heparin Sodium (Porcine) (Heparin Sodium 5,000 Units/Ml Vial) 0 units IV PUSH PRN PRN PRN Reason: aPTT less than 55 seconds Heparin Sodium (Porcine) (Heparin Sodium 5,000 Units/Ml Vial) 0 units IV PUSH PRN PRN PRN Reason: aPTT 55 - 70 seconds Heparin Sodium (Porcine) (Heparin Sodium 5,000 Units/Ml Vial) 8,000 units 80 units/kg (8000 units) IV PUSH ONCE ONE Stop: 01/23/21 10:39 Dextrose/Sodium Chloride (Dextrose 5% Sodium Chloride 0.45%) 1,000 mls @ 75 mls/hr IV CONT .[id number] [facility] Last Admin: 01/23/21 06:26 Dose: 75 mls/hr Documented by: Amiodarone HCl/Dextrose (Nexterone 360 Mg/D5w 200 Ml) 360 mg in 200 mls @ 16.667 mls/hr IV CONT .Q12H [facility] Last Admin: 01/23/21 02:42 Dose: 0.5 mg/min, 16.67 mls/hr Documented by: Heparin Sodium/Dextrose (Heparin Sodium/D5w 100 Units/Ml) 25,000 units in 250 mls @ 18.126 mls/hr IV CONT .[id number] [facility]; Protocol Lisinopril (Lisinopril 5 Mg Tablet) 5 mg PO DAILY [facility] Last Admin: 01/23/21 07:53 Dose: 5 mg Documented by: Melatonin (Melatonin 3 Mg Tablet) 3 mg PO HS [facility] Last Admin: 01/22/21 20:35 Dose: 3 mg Documented by: Metoprolol Tartrate (Metoprolol Tartrate 12.5 Mg Tablet) 12.5 mg PO Q12HR [facility] Last Admin: 01/23/21 07:53 Dose: 12.5 mg Documented by: Ondansetron HCl (Ondansetron Inj 4 Mg/2 Ml Vial) 4 mg IV PUSH Q4H PRN PRN Reason: Nausea Ondansetron HCl (Ondansetron Inj 4 Mg/2 Ml Vial) 4 mg IV PUSH Q6H PRN PRN Reason: Nausea And Vomiting Potassium Chloride (Potassium Chloride 10 Meq Tablet.Er) 10 meq PO BID [facility] Last Admin: 01/23/21 07:53 Dose: 10 meq Documented by: Tamsulosin HCl (Tamsulosin Hcl 0.4 Mg Capsule) 0.4 mg PO BID [facility] Last Admin: 01/23/21 07:53 Dose: 0.4 mg Documented by: Sedation/Anesthesia: No previous sedation/anesthesia problems (including family history). PMFSH Past Medical History Medical History Atrial fibrillation CAD (coronary artery disease) Ischemic cardiomyopathy Surgical History Surgical History History of pancreatic surgery Social History Social History Smoking status: Never smoker Alcohol intake: never Substance use: never Substance use type: does not use Gender identity (if verbalized
--- NOTE | 2021-01-23 09:00 | WPDHPUPDATE1 ---
History and Physical Update Update Date/Time: 01/23/21 0900am History and Physical has been reviewed, including an updated exam of the patient. There are NO changes in the patient's condition. Risks, benefits, and alternatives have been discussed and questions answered. Patient agrees to proceed with procedure.
--- NOTE | 2021-01-23 09:26 | PC.NURSE ---
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
--- NOTE | 2021-01-23 10:51 | WPDCARDPROC ---
Cardiac Cath Procedure Note Date of procedure:: 01/23/21 Performing physician:: Dahlia Gruber MD Date of service 01/23/2021 Indication:: decline in LV systolic function Brief clinical history:: this is a 85-year-old patient with past medical history of Coronary artery disease,atrial fibrillation, hypertension who was evaluated for shortness of breath and was found to have decline LV systolic function. he was brought into the electronic lab technician to rule out CAD. Procedure Procedure performed:: 1-Moderate sedation that started at 10:04 a.m.and ended at 10:30 a.m.using 1mg of Versed and 25mcg fentanyl. The registered nurse was jostin raya 2-Selective left and right coronary angiogram. 4-Right common femoral arterial angiogram. 5-Deployment of 6 [place] Angio-Seal. Sedation/Medication given:: Moderate sedation. Access site:: Right common femoral artery. Estimated blood loss:: 10cc Procedure note:: After informed consent patient was brought in to electronic lab technician with the was draped and prepped in usual manner. Moderate sedation was given and the right groin was infiltrated using 1% lidocaine. Five [place] sheath was obtained using micropuncture needle and the modified Seldinger technique. Selective left coronary angiogram was done using JL4 catheter with the tip of the catheter placed in the left main coronary artery. Selective right coronary angiogram was done using JR4 catheter with the tip of the catheter placed to the right coronary artery. Right common femoral arterial angiogram was done. after injecting the right coronary artery patient developed torsade de Pointe how he was defibrillated right away successfully. He converted to sinus rhythm. Findings:: 1- left coronary artery is a large artery that divides into large LAD, large circumflex artery. Left main is Free of disease. 2- left anterior descending artery is a large artery that runs and wraps around the apex. Has minimal irregularities and there is 50% stenosis at the distal most end at the apex. 3- leftcircumflex artery is a large artery And has a stent proximally and in the mid segment that has minimal InStent restenosis. 4- right coronary artery is Medium in size and dominant and has diffuse irregularities. The stent in the PDA is totally occluded. 6- opening arterial pressure was 130/80and closing pressure was 110/70 7- right femoral artery angiogram shows no significant disease in the right common femoral artery. Conclusion:: 1- totally occluded stent in the right PDA. 2- patent stent in the left circumflex artery with minimal InStent restenosis. 3- Patient developed torsade de Pointe after injecting the right coronary artery and defibrillated right away successfully. He converted to sinus rhythm. Assessment and Plan Additional Plan 1- Recommend IV heparin now immediately and switch him to Eliquis tonight. 2- continue amiodarone. 3- check serum magnesium.
[2021-01-23 11:50] LABS: Basophils Percent Auto 0.2 % (0.2-1.2); Eosinophils Absolute Auto 0.1 K/mm3 (0-0.3); Eosinophils Percent Auto 2.8 % (0-4.4); Immature Granulocyte Absolute 0.02 K/mm3 (0.00-0.031); Immature Granulocyte Percent A 0.5 % (0-0.5); Lymphocytes Absolute Auto 0.68 K/mm3 (0.9-3.2); Lymphocytes Percent Auto 15.7 % (18.3-44.2); Mean Corpuscular HGB Conc 33.3 g/dl (32-36); Mean Corpuscular Hemoglobin 34.1 pg (26-34); Mean Corpuscular Volume 102.2 fl (80-100); Mean Platelet Volume 10.7 fl (7.4-10.4); Monocytes Absolute Auto 0.4 K/mm3 (0.1-0.6); Neutrophils Absolute Auto 3.1 K/mm3 (1.3-6.7); Neutrophils Percent Auto 71.8 % (45.5-73.1); Platelet Count Result 153 k/mm3 (150-375); Red Blood Count 3.23 M/mm3 (4.6-6.20); Red Cell Distribution Width 13.9 % (11.5-14.5); White Blood Count 4.3 K/mm3 (4.5-10.0)
--- NOTE | 2021-01-23 11:50 | SUR.PHASEII ---
REPORT CALLED TO LANDY TORRES IN IMU. HAS HEPARIN GTT IN ROOM, READY TO START UPON PT'S RETURN TO ROOM. AMIODARONE GTT CONTINUES AT 16.7ML/HR AND IVF'S AT 75ML/HR. LABS HAVE BEEN DRAWN AND ADDITIONAL IV SITE STARTED.
[2021-01-23 12:00] LABS: Magnesium 1.7 mg/dL (1.6-2.3)
--- NOTE | 2021-01-23 12:05 | SUR.PHASEII ---
RETURNED TO IMU 201 VIA STRETCHER AT THIS TIME ON TELE MONITOR. BEDREST CONTINUES X 3 HOURS UNTIL 1329. R. GROIN SITE WITHOUT CHANGE; ASSESSED W/ LANDY TORRES AT BEDSIDE. DENIES PAIN OR SOB,. NO DISTRESS NOTED.
--- NOTE | 2021-01-23 12:05 | ECG_ITS ---
Measurements Intervals [place] Rate: 52 P: 39 NM: 154 QRS: -62 QRSD: 147 T: 0 QT: 455 QTc: 423 Interpretive Statements SINUS BRADYCARDIA LEFT BUNDLE BRANCH BLOCK ABNORMAL ECG Electronically Signed On 01-23-2021 15:58:37 CDT by Izaiah Pathak D.O.
[2021-01-23 12:08] LABS: INR 1.2; Prothrombin Time 16.1 Seconds (11.1-14.7)
[2021-01-23] MEDS: HEPARIN SOD/D5W 100 UNITS/ML 25,000 UNITS/250 ML BAG 15 UNITS IV CONT (12:25)
--- NOTE | 2021-01-23 13:15 | PM.IMPN ---
Progress Note: A&P Assessment and Plan (1) Chest pain: Qualifiers: Chest pain type: unspecified Qualified Code(s): R07.9 - Chest pain, unspecified Code(s): R07.9 - Chest pain, unspecified Status: Acute Assessment and Plan: Pt had angiogram results showed - 1- totally occluded stent in the right PDA. 2- patent stent in the left circumflex artery with minimal InStent restenosis. 3- Patient developed torsade de Pointe after injecting the right coronary artery and defibrillated right away successfully. He converted to sinus rhythm. (2) Atrial fibrillation with rapid ventricular response: Code(s): I48.91 - Unspecified atrial fibrillation Status: Acute Assessment and Plan: AFib with RVR with amiodarone drip off amiodarone drip Hold metoprolol if HR is low continue metoprolol continue eliquis (3) Hypertension: Code(s): I10 - Essential (primary) hypertension Status: Acute Assessment and Plan: stable continue home medication (4) Chronic pleural effusion: Code(s): J90 - Pleural effusion, not elsewhere classified Status: Acute Assessment and Plan: chronic follow-up with pulmonology as outpatient (5) Lung infiltrate: Code(s): R91.8 - Other nonspecific abnormal finding of lung field Status: Acute Assessment and Plan: chronic, no symptoms for PNEUMONIA (6) Pancreatic mass: Code(s): K86.89 - Other specified diseases of pancreas Status: Acute Assessment and Plan: history of pancreatic mass PATIENT HAD WORKUP OUTPATIENT AND HE HAD WHIPPLE PROCEDURE HE SAID HE STILL HAVE THE TUMOR AND HE WAS TOLD THAT THE TUMOR IS SLOWLY GROWING AND NO PLAN FOR FURTHER TREATMENT THE TUMOR IS SLOWLY GROWING follow-up with PCP as outpatient Subjective Date/time seen: 01/23/21 13:15 Interval history: 85 years old male with past medical history of hypertension AFib presented to the hospital with chest pain sudden-onset discomfort seen by cardiology. Pt had stent placed and developed some torsades, now SNR, watch overnite and hopeful discharge tomorrow. Review of Systems Review of Systems: All systems reviewed & are unremarkable except as noted in HPI and below Exam Const: General: comfortable HENMT: Mouth: Yes dry mucous membranes Eyes: Sclera: normal sclerae Neck: Neck: no JVD Resp: Auscultation: clear to auscultation bilaterally Cardio: Rate: regular rate Rhythm: abnormal rhythm GI: Inspection: non-distended Skin: General skin exam: normal color Neuro: General: gait normal Psych: Mental Status: mental status grossly normal Objective Data Vital Signs Vital Signs: Vital Signs - 24 hr 01/22/21 14:00 01/22/21 16:00 01/22/21 18:00 Temperature 36.2 C L Pulse Rate 87 73 97 Respiratory Rate 18 Blood Pressure 116/65 Pulse Oximetry 100 01/22/21 20:00 01/22/21 20:34 01/22/21 22:00 Temperature 36.6 C Pulse Rate 67 88 77 Respiratory Rate 18 Blood Pressure 119/73 Pulse Oximetry 98 01/22/21 23:32 01/23/21 00:00 01/23/21 02:00 Temperature 36.4 C Pulse Rate 85 67 84 Respiratory Rate 18 Blood Pressure 119/73 Pulse Oximetry 98 98 01/23/21 02:40 01/23/21 02:42 01/23/21 04:00 Temperature 36.6 C Pulse Rate 78 78 83 Respiratory Rate 20 Blood Pressure 107/78 Pulse Oximetry 100 01/23/21 06:00 01/23/21 07:53 01/23/21 07:57 Temperature 36.5 C Pulse Rate 96 99 67 Respiratory Rate 18 Blood Pressure 112/65 Pulse Oximetry 98 01/23/21 08:00 01/23/21 08:10 01/23/21 11:00 Temperature 36.2 C L Pulse Rate 92 57 L Respiratory Rate 14 Blood Pressure 140/78 Pulse Oximetry 98 100 01/23/21 11:15 01/23/21 11:30 01/23/21 11:45 Temperature Pulse Rate 60 45 L 56 L Respiratory Rate 16 16 16 Blood Pressure 136/76 135/61 128/63 Pulse Oximetry 99 99 99 Intake/Output Intake/Output: Intake & Outp
[2021-01-23 13:43] LABS: Partial Thromboplastin Time > 200.0 SECONDS (22.3-36.8)
--- NOTE | 2021-01-23 14:22 | PC.NURSE ---
Patients HR in 40's consistently. Karla Chun notified. Order to stop amiodarone drip. Will continue to monitor.
[2021-01-23] MEDS: MAGNESIUM SULF 1 GM/D5W 100 ML 1 GM/100 ML BAG IVPB (14:54)
[2021-01-23 17:52] LABS: Partial Thromboplastin Time 85.1 SECONDS (22.3-36.8)
[2021-01-23] MEDS: ATORVASTATIN 10 MG TABLET PO (20:31)
[2021-01-23] MEDS: MELATONIN 3 MG TABLET PO (20:31)
[2021-01-23] MEDS: FINASTERIDE 5 MG TABLET PO (20:31)
[2021-01-23] MEDS: APIXABAN 5 MG TABLET PO (20:31)
[2021-01-24] VITALS (10 sets, daily range): BP systolic 123–143; BP diastolic 58–71; PULSE 44–57; RESP 18–22; TEMP 35.9–36.6; O2SAT 98–100
[2021-01-24 05:10] LABS: Basophils Percent Auto 0.4 % (0.2-1.2); Eosinophils Absolute Auto 0.1 K/mm3 (0-0.3); Eosinophils Percent Auto 2.5 % (0-4.4); Hematocrit 33.1 % (42.0-52.0); Hemoglobin 10.7 g/dL (14.0-18.0); Immature Granulocyte Absolute 0.01 K/mm3 (0.00-0.031); Immature Granulocyte Percent A 0.2 % (0-0.5); Lymphocytes Absolute Auto 0.74 K/mm3 (0.9-3.2); Lymphocytes Percent Auto 15.7 % (18.3-44.2); Mean Corpuscular HGB Conc 32.3 g/dl (32-36); Mean Corpuscular Volume 105.1 fl (80-100); Mean Platelet Volume 11.1 fl (7.4-10.4); Monocytes Absolute Auto 0.5 K/mm3 (0.1-0.6); Monocytes Percent Auto 11.5 % (2.6-8.5); Neutrophils Absolute Auto 3.3 K/mm3 (1.3-6.7); Neutrophils Percent Auto 69.7 % (45.5-73.1); Platelet Count Result 163 k/mm3 (150-375); Red Blood Count 3.15 M/mm3 (4.6-6.20); Red Cell Distribution Width 14.3 % (11.5-14.5); White Blood Count 4.7 K/mm3 (4.5-10.0)
[2021-01-24] MEDS: ASPIRIN 81 MG ENTERIC TABLET PO (08:06)
[2021-01-24] MEDS: POTASSIUM CHLORIDE 10 MEQ TABLET.ER PO (08:07)
[2021-01-24] MEDS: TAMSULOSIN HCL 0.4 MG CAPSULE PO (08:07)
[2021-01-24] MEDS: lisinopriL 5 MG TABLET PO (08:07)
[2021-01-24] MEDS: APIXABAN 5 MG TABLET PO (08:07)
[2021-01-24] MEDS: FERROUS SULFATE 324 MG TABLET PO (08:07)
[2021-01-24] MEDS: DEXTROSE 5%/0.45% SOD CHL 1,000 ML 75 ML IV CONT (08:09)
--- NOTE | 2021-01-24 09:23 | PM.PNCARD ---
Progress Note: A&P Assessment and Plan (1) Atrial fibrillation with rapid ventricular response: Code(s): I48.91 - Unspecified atrial fibrillation Status: Acute Assessment and Plan: 85-year-old male with CAD, history of multiple PCI/stenting (last intervention with placement of 2.5 x 24 mm Promus everolimus eluting stent in the distal RCA extending into the RPDA on 05/12/2017); ischemic cardiomyopathy (LVEF 30% from 05/14/2017 echo); hypertension, atrial fibrillation on anticoagulation with apixaban (history of DC cardioversion on 06/22/2017). Patient presented to hospital with complaints of chest discomfort, diaphoresis, dizziness. He was found to be in atrial fibrillation with RVR. 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 IV amiodarone discontinued as patient was bradycardic in to 40's. Will continue metoprolol with holding parameters. Patient is systemically anticoagulated Eliquis. We will see him as an outpatient to monitor for atrial fibrillation. (2) Chest pain: Qualifiers: Chest pain type: unspecified Qualified Code(s): R07.9 - Chest pain, unspecified Code(s): R07.9 - Chest pain, unspecified Status: Acute Assessment and Plan: Chest discomfort happen in the setting of AFib with RVR. Low-dose aspirin Low-dose beta-fannie, monitor heart rate and blood pressure closely Statin Left heart catheterization yesterday showed: 1) totally occluded stent in the right PDA 2) patent stent in the left circumflex artery with minimal InStent restenosis. No intervention as patient developed torsade de Pointe and required defibrillation (3) Heart failure: Code(s): I50.9 - Heart failure, unspecified Status: Acute Assessment and Plan: Ischemic in etiology. Echo from 01/20/21 showed: 1) Left ventricular chamber dimension is mildly enlarged. 2) Left ventricular systolic function is moderately reduced, estimated at 35-40%. 3)There is mild aortic valve sclerosis. 4)There is trace mitral valve regurgitation. 5)Biatrial dilation right greater than left. See above for left heart catheterization findings. Patient on appropriate medical therapy including AINSLEY, beta fannie, statin, furosemide. Subjective Date/time seen: 01/24/21 09:23 Interval history: Cardiology follow up for atrial fibrillation, chest pain, heart failure Date of service 01/24/2021: Patient is sitting up in the chair this morning and continues to feel well. He is wondering if he will be able to go home today. He has been up and out of bed this morning and denies any dizziness, lightheadedness. He denies any chest pain, palpitations, shortness of breath. Review of Systems Review of Systems: All systems reviewed & are unremarkable except as noted in HPI and below Exam Narrative: Exam Narrative: Elderly male. Alert and oriented x3. Pleasant and cooperative. Const: General: comfortable and no acute distress HENMT: Head: normal to inspection and normocephalic Eyes: General: appearance normal, both eyes and all related structures Neck: Neck: supple and no JVD Resp: Effort & Inspection: normal respiratory effort Auscultation: clear to auscultation bilaterally Cardio: Rate: bradycardic Rhythm: regular rhythm GI: GI Palp: Yes Soft to palpation Auscultation: normal bowel sounds Skin: General skin exam: normal color and rashes and/or lesions noted (Left forearm lacerations and ecchymoses noted.) Other: Right groin catheter insertion site free from hematoma, bleeding, pain. Neuro: Cognition (Neuro): normal cognition Speech: normal speech Motor exam (neuro): Normal motor muscle tone present throughout Extrem: General: normal to inspection, no edema and no pedal edema Psych: Mental Status: mental status grossly normal Affect: normal affect Objective Data Vital Signs Vital Signs: Vital Signs - 24 hr 01/23/21
[2021-01-24] MEDS: METOPROLOL TARTRATE 6.25 MG TABLET PO (12:57)
--- NOTE | 2021-01-24 13:46 | PM.DS ---
DS: Admitting Diagnosis Admitting Diagnosis Admitting Diagnosis: Chest pain DS: Discharge Diagnosis Discharge Diagnosis (1) Chest pain: Qualifiers: Chest pain type: unspecified Qualified Code(s): R07.9 - Chest pain, unspecified Code(s): R07.9 - Chest pain, unspecified Status: Acute Assessment and Plan: Pt had angiogram results showed - 1- totally occluded stent in the right PDA. 2- patent stent in the left circumflex artery with minimal InStent restenosis. 3- Patient developed torsade de Pointe after injecting the right coronary artery and defibrillated right away successfully. He converted to sinus rhythm. (2) Atrial fibrillation with rapid ventricular response: Code(s): I48.91 - Unspecified atrial fibrillation Status: Acute Assessment and Plan: AFib with RVR with amiodarone drip off amiodarone drip Hold metoprolol if HR is low continue metoprolol continue eliquis (3) Hypertension: Code(s): I10 - Essential (primary) hypertension Status: Acute Assessment and Plan: stable continue home medication (4) Chronic pleural effusion: Code(s): J90 - Pleural effusion, not elsewhere classified Status: Acute Assessment and Plan: chronic follow-up with pulmonology as outpatient (5) Lung infiltrate: Code(s): R91.8 - Other nonspecific abnormal finding of lung field Status: Acute Assessment and Plan: chronic, no symptoms for PNEUMONIA (6) Pancreatic mass: Code(s): K86.89 - Other specified diseases of pancreas Status: Acute Assessment and Plan: history of pancreatic mass PATIENT HAD WORKUP OUTPATIENT AND HE HAD WHIPPLE PROCEDURE HE SAID HE STILL HAVE THE TUMOR AND HE WAS TOLD THAT THE TUMOR IS SLOWLY GROWING AND NO PLAN FOR FURTHER TREATMENT THE TUMOR IS SLOWLY GROWING follow-up with PCP as outpatient DS: Summary Hospital Course Hospital Course: 85 year of male with past medical history of hypertension AFib presented to the hospital with chest pain sudden-onset discomfort seen by cardiology. Pt had stent placed and developed some torsades, now SNR, watch overnite and hopeful dc today. Time Spent with Patient Time attestation: Total time spent providing and/or coordinating discharge services:40 minutes on day of discharge Exam Const: General: comfortable Resp: Auscultation: clear to auscultation bilaterally Cardio: Rate: regular rate GI: Inspection: non-distended Skin: General skin exam: normal color Neuro: General: gait normal Psych: Mental Status: mental status grossly normal DS: Data Data Completed and Pending Labs on day of discharge: Labs from last 24 hours 01/24/21 01/23/21 04:19 17:07 WBC 4.7 RBC 3.15 L Hgb 10.7 L Hct 33.1 L MCV 105.1 H MCH 34.0 MCHC 32.3 RDW 14.3 Plt Count 163 MPV 11.1 H Immature Gran % (Auto) 0.2 Neut % (Auto) 69.7 Lymph % (Auto) 15.7 L [place] % (Auto) 11.5 H Eos % (Auto) 2.5 Baso % (Auto) 0.4 Lymph # (Auto) 0.74 L [place] # (Auto) 0.5 Eos # (Auto) 0.1 Baso # (Auto) 0.0 Abs Immat Gran (auto) 0.01 Absolute Neuts (auto) 3.3 Absolute Nucleated RBC 0.0 Nucleated RBC % 0.0 APTT 85.1 H Discharge Plan Discharge Attending physician on discharge: Alayna Huber Consulting providers: Ani Stallings Discharging Clinician: Alayna Huber Anticipated Discharge Date/Time: 01/24/21 13:42 Patient Disposition: Home, Self-Care Activity: as tolerated Diet: heart healthy Patient Instructions: Antibiotic Form, Apixaban (By mouth) Stand Alone Forms: General Discharge Information Follow-up/Referrals: Audra Myers MD [Primary Care Provider] - Ani Stallings DO [Physician] - Discharge Medications: New alum-mag hydroxide-simeth [Mag-Al Plus] 200-200-20 mg/5 mL Suspension 30 ml PO QID PRN (Reason: Dyspepsia) Qty: 30
== END 2021-01-24 14:40 | disposition home or self-care (01) | DRG 287 ==
LOC: ANHED 07:39 → ANHIMU 08:29
PROVIDERS: Emergency Medicine; Internal Medicine Cardiovascular Disease; Admitting Provider Internal Medicine; Emergency Provider Emergency Medicine; PCP Internal Medicine; Visit Provider Family Medicine
PROC: 4A023N7 Measurement of Cardiac Sampling and Pressure, Left Heart, Percutaneous Approach (ICD-10-PCS; CPT 93454; principal; 2021-01-23 08:30)
DX: T82.855A Stenosis of coronary artery stent, initial encounter (principal); I25.10 Atherosclerotic heart disease of native coronary artery without angina pectoris; I11.0 Hypertensive heart disease with heart failure; I50.9 Heart failure, unspecified; I25.5 Ischemic cardiomyopathy; I45.81 Long QT syndrome; K86.89 Other specified diseases of pancreas; R91.8 Other nonspecific abnormal finding of lung field; Z79.01 Long term (current) use of anticoagulants; Z79.899 Other long term (current) drug therapy; I48.91 Unspecified atrial fibrillation; Z95.5 Presence of coronary angioplasty implant and graft
CPT/HCPCS: 36415; 71046; 80048; 80053; 83735; 84439; 84443; 84484; 85025; 85027; 85610; 85730; 93005; 93454; 96361; 96365; 96375; 99285; A9270; C1760; C1887; C1894; C8929; G0378; J0282; J1644; J1650; J2250; J3010; J3475; J7030; J7040; Q9957

== ENCOUNTER 2021-04-09 13:43 | Outpatient (CLI) | payer MEDICARE, OTHER, SELFPAY ==
--- NOTE | ~2021-04-09 | XR_ITS ---
XR chest 2V 04/09/2021 14:01 Indication: Shortness of breath. Pleural effusion. Procedure: 2 view chest Comparison: Multiple 04/17/2020 Findings: Moderate right and small left pleural effusions. Bibasilar airspace disease. No pneumothora x. No acute osseous abnormality. Cardiomegaly. No edema. Impression: 1: Bibasilar airspace disease which may represent atelectasis and/or pneumonia. 2: Small pleural effusions, right greater than left. Reviewed, dictated and finalized at location A. Impression: 1: Bibasilar airspace disease which may represent atelectasis and/or pneumonia. 2: Small pleural effusions, right greater than left.
== END 2021-04-09 13:44 | disposition home or self-care (01) ==
LOC: CHSIMG 13:45
PROVIDERS: PCP Internal Medicine; Visit Provider Internal Medicine
DX: J90 Pleural effusion, not elsewhere classified (principal)
CPT/HCPCS: 71046

== ENCOUNTER 2021-08-07 09:37 | Outpatient (CLI) | payer MEDICARE, OTHER, SELFPAY ==
[2021-08-07 09:50] LABS: Hematocrit 33.3 % (37.0-46.0); Hemoglobin 11.1 g/dL (12.4-15.3); Mean Corpuscular HGB Conc 33.3 g/dL (32.0-36.0); Mean Corpuscular Hemoglobin 34.3 pg (27.0-31.0); Mean Corpuscular Volume 102.8 fL (78.0-102.0); Mean Platelet Volume 10.5 fl (8.7-11.0); Platelet Count Result 193 K/mm3 (150-420); Red Blood Count 3.24 M/mm3 (4.70-6.10); Red Cell Distribution Width 13.8 % (11.6-14.4); White Blood Count 4.3 K/mm3 (4.8-10.8)
[2021-08-07 10:55] LABS: Anion Gap 10 mmol/L (8-16); Blood Urea Nitrogen 15 mg/dL (7-18); Calcium 7.9 mg/dL (8.5-10.1); Carbon Dioxide 24 mmol/L (21-32); Chloride 109 mmol/L (98-108); Estimated Glomerular Filt Rate 57; Glucose 95 mg/dL (70-99); Osmolality Calculated 296 mOsm/kg (285-295); Potassium 3.9 mmol/L (3.5-5.1); Sodium 143 mmol/L (136-145)
== END 2021-08-07 09:38 | disposition home or self-care (01) ==
LOC: CHSLAB 09:40
PROVIDERS: PCP Internal Medicine; Visit Provider Internal Medicine Cardiovascular Disease
DX: I50.32 Chronic diastolic (congestive) heart failure (principal); Z79.01 Long term (current) use of anticoagulants
CPT/HCPCS: 36415; 80048; 85027

== ENCOUNTER 2021-10-21 09:17 | Outpatient (CLI) | payer MEDICARE, SELFPAY ==
[2021-10-21 09:34] LABS: Hematocrit 34.5 % (37.0-46.0); Mean Corpuscular HGB Conc 31.9 g/dL (32.0-36.0); Mean Corpuscular Hemoglobin 34.6 pg (27.0-31.0); Mean Corpuscular Volume 108.5 fL (78.0-102.0); Mean Platelet Volume 10.1 fl (8.7-11.0); Platelet Count Result 190 K/mm3 (150-420); Red Blood Count 3.18 M/mm3 (4.70-6.10); Red Cell Distribution Width 13.9 % (11.6-14.4); White Blood Count 3.5 K/mm3 (4.8-10.8)
[2021-10-21 09:56] LABS: Appearance Urine Clear (Clear); Bilirubin Urine Negative (Negative); Color Urine Yellow (Yellow); Glucose Urine UA Negative (Negative); Ketones Urine Negative (Negative); Leukocyte Esterase Ur Negative LEU/UL (Negative); Nitrate Urine Negative (Negative); Protein Urine Negative (Negative); Specific Grav Ur >= 1.030 (1.010-1.020); Urobilinogen Urine 0.2 mg/dL (0.2-1.0); pH Urine 5.5 (5.0-8.0)
[2021-10-21 10:02] LABS: Add Urine Microscopic? YES; Bacteria Urine None seen /hpf; Blood Urine Trace-Intact (Negative); RBC Urine None seen /hpf (0-2); Squamous Epithelial Cell Urine Rare /hpf (Few); WBC Urine None seen /hpf (0-3)
[2021-10-21 10:20] LABS: Band Neutrophils Percent 2 % (0-6); Eosinophils Absolute Manual 0.03 K/mm3 (0.02-0.5); Eosinophils Percent Manual 1 % (1-6); Lymphocytes Absolute Manual 0.94 K/mm3 (1.1-4.5); Lymphocytes Percent Manual 27 % (18-44); Monocytes Absolute Manual 0.24 K/mm3 (0.1-0.90); Monocytes Percent Manual 7 % (3-9); Neutrophils Absolute Manual 2.27 K/mm3 (1.3-6.7); Neutrophils Percent Manual 63 % (46-73); Platelet Estimate Adequate (Adequate); Total Cells Counted 100
[2021-10-21 10:27] LABS: Hemoglobin A1C 5.5 % (<5.7)
[2021-10-21 10:44] LABS: Alanine Aminotransferase 20 U/L (16-63); Albumin Level 2.7 g/dL (3.4-5.0); Alkaline Phosphatase 115 U/L (46-116); Anion Gap 7 mmol/L (8-16); Aspartate Amino Transferase 14 U/L (15-37); Bilirubin,Total 0.4 mg/dL (0.00-1.00); Blood Urea Nitrogen 13 mg/dL (7-18); Calcium 7.9 mg/dL (8.5-10.1); Carbon Dioxide 25 mmol/L (21-32); Chloride 112 mmol/L (98-108); Cholesterol 90 mg/dL (0-200); Creatine Kinase 33 U/L (39-308); Estimated Glomerular Filt Rate > 60; Ferritin 214 ng/mL (26-388); Free T3 1.88 pg/mL (2.18-3.98); Free T4 Free Thyroxine 1.46 ng/dL (0.76-1.46); Glucose 101 mg/dL (70-99); HDL Direct 40 mg/dL (40-60); Iron 81 ug/dL (65-175); LDL Cholesterol Calculated 41 mg/dL (<130); NT Pro B Type Natriuretic Pept 1311 pg/mL (0-450); Osmolality Calculated 298 mOsm/kg (285-295); Potassium 4.3 mmol/L (3.5-5.1); Sodium 144 mmol/L (136-145); Thyroid Stimulating Hormone 2.52 uIU/mL (0.36-3.74); Total Protein 6.1 g/dL (6.4-8.2); Triglycerides 44 mg/dL (0-150)
== END 2021-10-21 09:18 | disposition home or self-care (01) ==
LOC: CHSLAB 09:20
PROVIDERS: PCP Internal Medicine; Visit Provider Internal Medicine
DX: I50.22 Chronic systolic (congestive) heart failure (principal); I10 Essential (primary) hypertension; D50.9 Iron deficiency anemia, unspecified; R73.01 Impaired fasting glucose; E78.2 Mixed hyperlipidemia
CPT/HCPCS: 36415; 80053; 80061; 81001; 82550; 82728; 83036; 83540; 83880; 84439; 84443; 84481; 85025

== ENCOUNTER 2021-11-05 13:36 | Outpatient (CLI) | payer MEDICARE, OTHER, SELFPAY ==
--- NOTE | ~2021-11-05 | XR_ITS ---
XR chest 2V DATE: 11/05/2021 14:03 INDICATION: Pleural effusion TECHNIQUE: 2 views COMPARISON: 04/10/2021 chest 2 views FINDINGS: Heart size is within normal range. There is extensive coronary artery calcification. Ther e is aortic calcification. There is persistent right pleural effusion and right basilar infiltrate/atelectasis. The remainder of the right lung and left lung are clear of infiltrate. No left pleural effusion. There is diffuse osteopenia. Anterior wedging and loss of height of an upper lumbar vertebra. Degenerative change of the thoracic and lumbar spine. IMPRESSION: Persistent right pleural effusion and right basilar infiltrate and/or atelectasis Reviewed, dictated and finalized at location A. IMPRESSION: Persistent right pleural effusion and right basilar infiltrate and/ or atelectasis
[2021-11-05 13:48] LABS: Immature Reticulocyte Fraction 10.2 % (2.0-16.52); Reticulocyte Hemoglobin Conten 38.3 pg (28.0-35.0); Reticulocyte Percent 1.36 % (0.50-1.50); Reticulocytes Absolute 0.04 M/mm3 (0.02-0.1)
[2021-11-05 15:59] LABS: Vitamin B12 199 pg/mL (193-986)
[2021-11-08 07:00] LABS: Red Blood Cell Folate 674 ng/mL RBC (>280)
[2021-11-09 23:14] LABS: Methylmalonic Acid 811 nmol/L (87-318)
== END 2021-11-05 13:37 | disposition home or self-care (01) ==
PROVIDERS: PCP Internal Medicine; Visit Provider Internal Medicine
DX: D53.9 Nutritional anemia, unspecified (principal); J90 Pleural effusion, not elsewhere classified; E61.1 Iron deficiency; E53.8 Deficiency of other specified B group vitamins
CPT/HCPCS: 36415; 71046; 82607; 82747; 83921; 85046

== ENCOUNTER 2021-11-17 13:02 | Outpatient (CLI) | payer MEDICARE, SELFPAY ==
[2021-11-17 13:11] LABS: Hematocrit 36.7 % (37.0-46.0); Hemoglobin 11.7 g/dL (12.4-15.3); Mean Corpuscular HGB Conc 31.9 g/dL (32.0-36.0); Mean Corpuscular Hemoglobin 34.3 pg (27.0-31.0); Mean Corpuscular Volume 107.6 fL (78.0-102.0); Mean Platelet Volume 9.8 fl (8.7-11.0); Platelet Count Result 185 K/mm3 (150-420); Red Blood Count 3.41 M/mm3 (4.70-6.10); Red Cell Distribution Width 13.8 % (11.6-14.4); White Blood Count 3.7 K/mm3 (4.8-10.8)
[2021-11-17 13:49] LABS: Band Neutrophils Percent 0 % (0-6); Basophils Absolute Manual 0.03 K/mm3 (0-0.1); Basophils Percent Manual 1 % (0-1); Eosinophils Absolute Manual 0.18 K/mm3 (0.02-0.5); Eosinophils Percent Manual 5 % (1-6); Lymphocytes Absolute Manual 0.55 K/mm3 (1.1-4.5); Lymphocytes Percent Manual 15 % (18-44); Monocytes Absolute Manual 0.22 K/mm3 (0.1-0.90); Monocytes Percent Manual 6 % (3-9); Neutrophils Percent Manual 73 % (46-73); Platelet Estimate Adequate (Adequate); Total Cells Counted 100
[2021-11-17 14:19] LABS: Vitamin B12 1148 pg/mL (193-986)
== END 2021-11-17 13:03 | disposition home or self-care (01) ==
LOC: CHSLAB 13:04
PROVIDERS: PCP Internal Medicine; Visit Provider Internal Medicine
DX: E53.8 Deficiency of other specified B group vitamins (principal); D64.9 Anemia, unspecified
CPT/HCPCS: 36415; 82607; 85025

== ENCOUNTER 2022-04-01 08:41 | Inpatient (IN) | payer MEDICARE, OTHER, SELFPAY ==
[2022-04-01] VITALS (16 sets, daily range): BP systolic 67–136; BP diastolic 39–69; PULSE 76–139; RESP 11–29; TEMP 35.8–37.4; O2SAT 94–100; BMI 30.3
--- NOTE | 2022-04-01 | ECHO_ITS ---
Patient Info Name: Noel Pierre Age: 87 years : 1935 Gender: Male Ht: 72 in Wt: 213 lbs BSA: 2.23 m2 HR: 103 bpm BP: 119 / 61 mmHg Heart Rhythm: Atrial Fibrillation Exam Date: 04/01/2022 1:17 PM Exam Location: [facility] Patient Status: Inpatient Admit Date: 04/01/2022 Staff Ordering Physician: Hao Paulson MD Steam Tunnel Feeder: Jeremías Fountain RDCS, RT Attending Provider: Nikko Woods MD Exam Type: CA echo doppler color flow Study Info Indications I50.9 - Heart failure, unspecified Complete two-dimensional, color flow and Doppler transthoracic echocardiogram is performed with contrast to opacify the left ventricle and to improve the deliniation of the left ventricle endocardial borders. History/Risk Factors Hypertension: Yes Dyslipidemia: Yes Congenital Heart Disease (CHD): No Peripheral Arterial Disease (PAD): No Myocardial Infarction (ME): No Chronic Lung Disease: No Obesity: Yes Renal Disease: No Coronary Artery Disease (CAD) Yes Congestive Heart Failure (CHF): Hx CHF Cardiomyopathy/LV Systolic Dysfunction: No Diabetes Mellitus: No COPD: On Meds Tobacco Use: Former Cerebrovascular Disease: No Deep Vein Thrombosis (DVT): None Dialysis: None Frailty Scale (CSHA): 4: Vulnerable Cardiac Arrest: No Prior Interventions Pacemaker: No PCI: No CABG: No ICD: No PV Intervention: None Heart Transplant: No Summary 1. Normal LV size with mild hypertrophy. Endocardium is poorly visualized and left ventricular function is difficult to assess; ejection fraction greater than 45%. Grade 2 diastolic dysfunction is present. 2. No significant valve disease. 3. Atrial fibrillation. 4. Very technically difficult study. Definity echo contrast used. Unable to position the patient for optimal imaging. Consider repeating the study at a later date, if clinically indicated. Left Ventricle Left ventricular chamber dimension is normal. Left ventricular systolic function is mildly reduced, estimated at 50-55%. There is mildly increased left ventricular wall thickness. Left ventricular septal wall motion is normal. The left ventricular diastolic function is normal. Right Ventricle Right ventricular chamber dimension is normal. Right ventricular systolic function is normal. Left Atria Left atrial chamber dimension is normal. Right Atria Right atrial chamber dimension is normal. Aortic Valve The aortic valve is trileaflet. There is no aortic valve sclerosis. There is no aortic valve stenosis. There is no aortic valve regurgitation. Pulmonic Valve The pulmonic valve is normal. There is no pulmonic valve stenosis. There is no pulmonic regurgitation. Mitral Valve The mitral valve has normal leaflets. There is no mitral valve stenosis. There is no mitral valve regurgitation. Tricuspid Valve The tricuspid valve leaflets are normal. There is no significant tricuspid valve stenosis. There is trace tricuspid valve regurgitation. Moderate pulmonary hypertension, estimated pulmonary arterial systolic pressure is 47 mmHg. Pericardium/Pleural The pericardium appears normal. There is no pericardial effusion. Inferior Vena Cava Normal inferior vena cava with >50% collapse upon inspiration consistent with Empty right atrial pressure, 10 mmHg. Aorta The aortic root size at the sinus of Valsalva is normal. The p
--- NOTE | ~2022-04-01 | CT_ITS ---
EXAMINATION: CT chest abdomen pelvis wo con DATE: 04/01/2022 10:27 INDICATION: Sepsis. TECHNIQUE: Computed tomography (CT) of the chest, abdomen, and pelvis was performed without intraveno us contrast. Automated exposure control and iterative reconstruction technique were employed. The dos e-length product was 1596.61 mGy-cm. COMPARISON: Chest CT 01/31/2020, 03/08/14 FINDINGS: CHEST CT: There is mild scarring at the lung apices. There are moderate-sized right and small left pleural effu sions. There are airspace and groundglass opacities in right upper lobe. There are airspace opacities with volume loss in right middle lobe and right lower lobe, consistent with atelectasis. Calcified l eft hilar and mediastinal lymph nodes are consistent with old granulomatous disease. Cardiomegaly is noted. No pericardial effusion. There are coronary artery calcifications. Gynecomastia is noted. Ther e are bridging endplate osteophytes at multiple levels in the spine, consistent with diffuse idiopath ic skeletal hyperostosis (DISH). ABDOMEN/PELVIS CT: Calcifications in the liver and spleen are consistent with old granulomatous disease. The gallbladder is absent. There is fatty atrophy of the pancreas. There is a 6.7 x 5.7 cm cystic mass with calcific ations and innumerable septa in the head of the pancreas. The adrenal glands and right kidney are nor mal normal. There is a 2.8 cm cyst in left kidney. There is a right inguinal hernia containing fat. T here is wall thickening of the transverse and descending colon. The appendix is not visualized. There are no pathologically enlarged lymph nodes. There is no free intraperitoneal fluid. Body wall edema is noted. There is a catheter tip in right external iliac artery. There is a total left hip arthropla sty. There are bridging endplate osteophytes at multiple levels in the spine, consistent with diffuse idiopathic skeletal hyperostosis (DISH). There is a chronic compression fracture of L1. IMPRESSION: 1. Moderate-sized right and small left pleural effusions. 2. Airspace and groundglass opacities in right upper lobe, consistent with pneumonia. 3. 6.7 cm cystic mass in the head of the pancreas, stable from 03/08/14, likely benign. The differenti al diagnosis includes serous cystadenoma and neuroendocrine tumor. 4. Wall thickening of the transverse and descending colon, consistent with colitis. Reviewed, dictated and finalized at location A. IMPRESSION: 1. Moderate-sized right and small left pleural effusions. 2. Airspace and groundglass opacities in right upper lobe, consistent with pneu monia. 3. 6.7 cm cystic mass in the head of the pancreas, stable from 03/08/14, likely benign. The differential diagnosis includes serous cystadenoma and neuroendocri ne tumor. 4. Wall thickening of the transverse and descending colon, consistent with coli tis.
--- NOTE | ~2022-04-01 | US_ITS ---
US venous doppler [facility] DATE: 04/02/2022 11:03 INDICATION: Lower extremity pain TECHNIQUE: Real-time and color flow imaging and Doppler analysis of the veins of the lower extremitie s COMPARISON: None FINDINGS: The greater saphenous veins are patent. There is spontaneous and phasic flow and normal aug mentation and color flow signal and normal compression of the deep veins of both lower extremities. IMPRESSION: No evidence of deep venous thrombosis of the lower extremities Reviewed, dictated and finalized at Location [facility]. Reviewed, dictated and finalized at location B.
--- NOTE | 2022-04-01 08:37 | ED.WEAKNESS ---
HPI - Weakness General Chief complaint: Weakness Stated complaint: weakness History of Present Illness HPI Narrative: pt poor historian not giving much details per sweaty and cp today and per ems found near syncope sweaty and c/o weakness and palpiataitons no am meds no cp or sob f/uri/truama or med chagnes h/o afib and took asa x2 baby only meds today. says took meds yesterday pt says didn't took them last day before pt on arrival says cp now and can't describe to me. 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 and still low on arrival repeat ekg wiht cp called stemi wiht ekg, ems ekg's x2 afib rvr then st depression less v leads then much more significant again with low bp and cp on arrival compared to previous ekg's for ems at house before arrival Related Data Home Medications Medication Instructions Recorded Confirmed apixaban 5 mg tablet (Eliquis) 5 mg PO BID 01/20/21 01/20/21 atorvastatin 10 mg tablet 10 mg PO HS 01/20/21 01/20/21 ferrous sulfate 325 mg (65 mg 325 mg PO DAILY 01/20/21 01/20/21 iron) tablet finasteride 5 mg tablet 5 mg PO HS 01/20/21 01/20/21 furosemide 20 mg tablet 20 mg PO 6XW 01/20/21 01/20/21 melatonin 1 mg tablet 3 mg PO HS 01/20/21 01/20/21 potassium chloride 10 mEq 10 meq PO BID 01/20/21 01/20/21 tablet,extended release(part/cryst) (Klor-Con M) tamsulosin 0.4 mg capsule 0.4 mg PO BID 01/20/21 01/20/21 clopidogrel 75 mg tablet (Plavix) 75 mg PO DAILY 04/01/22 04/01/22 Allergies Allergy/AdvReac Type Severity Reaction Status Date / Time No Known Allergies Allergy Verified 01/20/21 06:50 Review of Systems Constitutional: Comments: CONSTITUTIONAL: Denies fever, chills, has sweats. globally weak EYES: Denies visual changes, redness, or discharge. ENT: Denies rhinorrhea, congestion, sore throat, or otalgia. CARDIOVASCULAR: has chest pain, palpitations, or edema. RESPIRATORY: Denies cough or dyspnea. GASTROINTESTINAL: Denies abdominal pain, nausea, vomiting, or diarrhea. GENITOURINARY: Denies dysuria or hematuria. SKIN: Denies rash or itching. MUSCULOSKELETAL: Denies back pain, joint pain, or myalgia. NEUROLOGIC: Denies headache, numbness, no trauma PSYCHIATRIC: Denies anxiety or depression. [facility] Past Medical History Medical History Atrial fibrillation CAD (coronary artery disease) Ischemic cardiomyopathy Surgical History Surgical History History of pancreatic surgery Social History Social History Smoking status: Never smoker Alcohol intake: never Substance use: never Substance use type: does not use Gender identity (if verbalized by the patient): Male Spiritual care concerns: No Exam Const: Other: APPEARANCE: nonWell appearing, no pain in distress, well-nourished. Head normocephalic atraumtaic. EYES: PERRLA/EOMI, conjunctivae very clear. NOSE: Normal no drainage EARS:TMS clear Marta Bird, with good light reflex. THROAT: Pharynx clear, no exudate. foul smell like sepsis to breath NECK: Supple. No adenopathy, no masses. RESPIRATORY: Airway patent, repsirations nonlabored. Clear to auscultation bilaterally, no rales, rhonchi, wheezing. CARDIOVASCULAR:irreg Regular rate and rhythm without murmurs rubs or gallops. ABDOMINAL: Soft, nontender, nondistended, no hepatosplenomegally MUSCULOSKELETAl: Moves all extremities. Strenght/ROM intact 3+ edema, No calf tenderness. NEURO: Alert. Cranial nerves II through XII intact. globally weak SKIN:: Warm, sweating mild forehead. Normal Color PSYCHIATRIC: Normal affect/mood, normal interaction with parents. Course Reevaluation(s) Reevaluation #1: called stemi when ekg done and Dr Woods at bedside talking with family and looking at chart given hist
--- NOTE | 2022-04-01 08:52 | ECG_ITS ---
Measurements Intervals [place] Rate: 84 P: MS: 0 QRS: -74 QRSD: 152 T: 62 QT: 405 QTc: 480 Interpretive Statements ATRIAL FIBRILLATION WITH ABERRANT CONDUCTION OR VENTRICULAR PREMATURE COMPLEXES LEFT AXIS DEVIATION [QRS AXIS < -30] INTRAVENTRICULAR CONDUCTION DELAY [130+ ms QRS DURATION] ST DEPRESSION, CONSIDER SUBENDOCARDIAL INJURY [0.1+ mV ST DEPRESSION] COMPARED TO ECG 04/01/2022 08:46:03 NO SIGNIFICANT CHANGE Electronically Signed On 04-01-2022 18:18:04 CDT by Vivian Garza M.D.
[2022-04-01] MEDS: SODIUM CHLORIDE 0.9% IV 1,000 ML 999 ML IV CONT (09:03)
[2022-04-01] MEDS: HEPARIN SODIUM 5,000 UNITS/ML VIAL 4000 UNITS IV PUSH ×2 (09:05→20:22)
[2022-04-01] MEDS: NOREPINEPHRINE 8 MG/D5W 250 ML 8 MG/250 ML BAG 9.38 MG IV CONT (09:05)
[2022-04-01 09:08] LABS: Basophils Percent Auto 0.8 % (0.2-1.2); Eosinophils Absolute Auto 0.1 K/mm3 (0-0.3); Eosinophils Percent Auto 3.1 % (0-4.4); Hematocrit 32.4 % (42.0-52.0); Immature Granulocyte Absolute 0.01 K/mm3 (0.00-0.031); Immature Granulocyte Percent A 0.3 % (0-0.5); Lymphocytes Absolute Auto 1.39 K/mm3 (0.9-3.2); Lymphocytes Percent Auto 35.9 % (18.3-44.2); Mean Corpuscular HGB Conc 30.9 g/dl (32-36); Mean Corpuscular Hemoglobin 33.1 pg (26-34); Mean Corpuscular Volume 107.3 fl (80-100); Mean Platelet Volume 10.8 fl (7.4-10.4); Monocytes Absolute Auto 0.4 K/mm3 (0.1-0.6); Neutrophils Percent Auto 50.9 % (45.5-73.1); Platelet Count Result 159 k/mm3 (150-375); Red Blood Count 3.02 M/mm3 (4.6-6.20); Red Cell Distribution Width 14.2 % (11.5-14.5); White Blood Count 3.9 K/mm3 (4.5-10.0)
--- NOTE | 2022-04-01 09:15 | ECG_ITS ---
Measurements Intervals [place] Rate: 99 P: [place]: 0 QRS: -72 QRSD: 149 T: 78 QT: 371 QTc: 477 Interpretive Statements ATRIAL FIBRILLATION WITH ABERRANT CONDUCTION OR VENTRICULAR PREMATURE COMPLEXES INTRAVENTRICULAR CONDUCTION DELAY [130+ ms QRS DURATION] MARKED ST DEPRESSION, CONSIDER SUBENDOCARDIAL INJURY [0.2+ mV ST DEPRESSION] ACUTE NE COMPARED TO ECG 01/23/2021 12:40:00 ATRIAL FIBRILLATION NOW PRESENT ABERRANT CONDUCTION OF SUPRAVENTRICULAR BEAT(S) NOW PRESENT INTRAVENTRICULAR CONDUCTION DELAY NOW PRESENT Electronically Signed On 04-01-2022 18:17:11 CDT by Vivian Garza M.D.
[2022-04-01 09:22] LABS: Lactic Acid Reflex 2.8 mmol/L (0.7-2.0)
[2022-04-01 09:24] LABS: Alanine Aminotransferase 10 U/L (6-50); Albumin Level 2.7 g/dL (3.5-5.1); Alkaline Phosphatase 98 U/L (38-126); Anion Gap 11 mmol/L (8-16); Aspartate Amino Transferase 15 U/L (17-59); Bilirubin,Total 0.3 mg/dL (0.2-1.3); Blood Urea Nitrogen 15 mg/dL (9-20); CRP < 0.5 mg/dL (<1.0); Carbon Dioxide 20 mmol/L (22-30); Chloride 107 mmol/L (98-107); Cholesterol 83 mg/dL (0-200); Estimated CRCL calculation 46 ml/min; Estimated Glomerular Filt Rate > 60; Glucose 120 mg/dL (65-110); HDL Direct 36 mg/dL; Magnesium 1.8 mg/dL (1.6-2.3); Potassium 3.5 mmol/L (3.4-5.0); Sodium 138 mmol/L (137-145); Triglycerides 134 mg/dL (<150)
[2022-04-01 09:25] LABS: Glucose Point of Care 93 mg/dl (65-105)
[2022-04-01 09:32] LABS: LDL Cholesterol Direct 31 mg/dL; Troponin I 0.017 ng/mL (0.000-0.034)
[2022-04-01 09:44] LABS: Platelet Estimate Adequate (Adequate)
[2022-04-01 09:45] LABS: Acanthocytes 1+ (NORMAL); Ovalocytes 1+ (NORMAL)
[2022-04-01 09:53] LABS: SARS-CoV-2 RNA PCR Negative
--- NOTE | 2022-04-01 10:16 | WPDCARDPROC ---
Cardiac Cath Procedure Note Date of procedure:: 04/01/22 Performing physician:: Nikko Woods MD Indication:: chest pain/ hypotension/ atrial fibrillation / ST segment depression Brief clinical history:: this is an 87-year-old man known to have coronary disease and paroxysmal atrial fibrillation. He presents to the emergency room with a situation that is clinically unclear. Apparently he was reporting chest pain this morning and vital signs he took in his home showed him to be hypotensive. EMS was called where his ECG in the field demonstrated atrial fibrillation with left bundle branch block type IVCD and precordial ST segment depression. Previous ECG demonstrated sinus rhythm with right bundle branch block. Patient is known to have a distal occlusion of his right coronary artery and previous stenting of a long segment of his circumflex. In this setting STEMI was declared and he is being brought for emergency angiography. The patient was significantly hypotensive in the emergency department and has been placed on Levophed infusion. He is systemically anticoagulated with apixaban. I do not obtain a history of active chest pain although that history this morning seems to be inconsistent Procedure Procedure performed:: emergency coronary angiography left ventriculography Sedation/Medication given:: no additional sedation Access site:: right femoral artery Estimated blood loss:: 25 cc Procedure note:: patient was brought to the cardiac laborer in the emergent setting described above. The right femoral triangle was prepared and draped in the usual fashion. 1% lidocaine was injected and infiltrated locally for local anesthesia. The right femoral artery was punctured using the modified Seldinger technique and then a 6 German vascular sheath was placed. I used a 5 German JR4 catheter to engage and inject the right coronary artery and then attempted to engage the left coronary using a CLS 3.5 guiding catheter. This was not successful I was able to successfully engage the left coronary using a 6 German JR4 guiding catheter. Angiography was done of the left coronary in multiple projections. Following this the cineangiograms were reviewed and a pigtail catheter to document left-sided hemodynamics and to inject LV g in the EUGENE projection. The case was then terminated the sheath was sutured into position the patient was taken to the ICU for management and recovery. Findings:: Hemodynamics: Central aortic pressure is 112 over 56 left ventricle 120 over to end-diastolic 12. Appears to be a 5-10 mm gradient on pullback across the aortic valve. Left ventricle: The LV appears to be normal in size the inferior posterior segment is akinetic. The anterior wall and apex are hyperdynamic. Global ejection fraction appears to be normal 55% by visual estimation the left main coronary artery is medium in caliber and nicely patent. The left anterior descending is a medium caliber vessel extending down to around the apex there are mild luminal irregularities throughout the LAD but no functionally significant disease is seen. Angiographically unchanged compared with 2020 circumflex is a medium caliber vessel giving rise to a couple of diminutive small proximal marginal branches and then a more substantial distal marginal branch. The circumflex system has stent material that is seen from the ostium down to the distal portion of the vessel. At least 2 previously deployed stents appear to be present there. Angiographically there is no significant disease in the circumflex. There is mild loss of lumen in the stented area diffusely but no significant stenosis is seen. Angiographically also unchanged compared with 2020 right coronary artery is medium in caliber and was dominant to the posterior circulation. The right coronary artery is 100% occluded distally in the site of a previously deployed stent. This total occlusion was angiographic
--- NOTE | 2022-04-01 10:25 | PM.IMHP ---
H&P: HPI History of Present Illness Date/Time: 04/01/22 10:25 Chief Complaint: low blood pressure Narrative: this is an 87-year-old man I am seeing emergently in the emergency department as STEMI was declared in the field and by the ED physician. The patient is being attended to by the ER nursing staff as I see him and speak to his family. According to what I can gather he was woke up at 7:00 a.m. this morning feeling unwell. His states that he was reporting some chest discomfort at that time. He currently does not report active chest pain to me although he is giving an inconsistent history in that regard. The patient when he was feeling unwell apparently had his blood pressure taken at his home he was found to be hypotensive he also felt the sense of palpitations and 911 was called. His electrocardiogram appears to show atrial fibrillation with controlled response. QRS prolongation with a left bundle branch block morphology and precordial ST segment depression. Previous ECG in our office chart demonstrated sinus rhythm with right bundle branch block. Upon arrival in the emergency room the patient was found to be hypotensive his systolic blood pressures are in the high 60s to mid 70s. He has been placed on some Levophed and we have been summoned to see him in the emergency room in this setting. He does have a history of paroxysmal atrial fibrillation and is systemically anticoagulated with apixaban. He is known to and followed by my partner Dr. Garza but unknown to me prior to this encounter. Laboratory data is pending at the time of this evaluation. Based on his symptoms, ECG presentation and hypotension emergency coronary angiography has been recommended and will be performed shortly. Review of Systems Review of Systems: ROS unobtainable: Yes unobtainable due to medical condition [facility] Past Medical History Medical History Atrial fibrillation CAD (coronary artery disease) Ischemic cardiomyopathy Surgical History Surgical History History of pancreatic surgery Social History Social History Smoking status: Never smoker Alcohol intake: never Substance use: never Substance use type: does not use Gender identity (if verbalized by the patient): Male Spiritual care concerns: No Meds Home Medications and Allergies Home Medications Medication Instructions Recorded Confirmed Type apixaban 5 mg tablet (Eliquis) 5 mg PO BID 01/20/21 01/20/21 History atorvastatin 10 mg tablet 10 mg PO HS 01/20/21 01/20/21 History ferrous sulfate 325 mg (65 mg 325 mg PO DAILY 01/20/21 01/20/21 History iron) tablet finasteride 5 mg tablet 5 mg PO HS 01/20/21 01/20/21 History furosemide 20 mg tablet 20 mg PO 6XW 01/20/21 01/20/21 History melatonin 1 mg tablet 3 mg PO HS 01/20/21 01/20/21 History potassium chloride 10 mEq 10 meq PO BID 01/20/21 01/20/21 History tablet,extended release(part/cryst) (Klor-Con M) tamsulosin 0.4 mg capsule 0.4 mg PO BID 01/20/21 01/20/21 History aluminum-mag hydroxide-simethicone 30 ml PO QID PRN Dyspepsia #30 mL 01/24/21 Rx 200 mg-200 mg-20 mg/5 mL oral susp (Mag-Al Plus) apixaban 5 mg tablet (Eliquis) 5 mg PO Q12HR #60 tabs 01/24/21 Rx aspirin 81 mg tablet,delayed 81 mg PO QAM #30 tabs 01/24/21 Rx release metoprolol succinate 25 mg 6.25 mg PO DAILY #0 tabs 01/24/21 01/20/21 Rx tablet,extended release 24 hr clopidogrel 75 mg tablet (Plavix) 75 mg PO DAILY 04/01/22 04/01/22 History Allergies Allergy/AdvReac Type Severity Reaction Status Date / Time No Known Allergies Allergy Verified 01/20/21 06:50 Vital Signs Vital Signs - 24 hr 04/01/22 08:36 04/01/22 08:52 04/01/22 09:02 Temperature 36.2 C L Pulse Rate 126 H 128 H 76 Respiratory Rate 29 H 22 H Blood Pressure 67/39 L 72/44 L Pulse O
--- NOTE | 2022-04-01 10:45 | WPDCNINT ---
Assessment and Plan Assessment and plan (1) Sepsis: Code(s): A41.9 - Sepsis, unspecified organism Status: Acute Assessment and Plan: Secondary to pneumonia and possible colitis. 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 I will order another 500 mL Blood pressures improved after fluid bolus and patient is now weaned off of vasopressors Repeat lactic acid level now Check UA urine culture and blood culture Check urine Legionella and pneumococcal antigen Check stool for C diff Empiric Rocephin doxycycline and Flagyl (2) Chest pain: Code(s): R07.9 - Chest pain, unspecified Status: Acute Assessment and Plan: Atypical chest pain as per history with negative troponin Abnormal EKG and past medical history of coronary disease service stenting Patient had cardiac catheterization done as he was suspected to have STEMI and showed 1. coronary artery disease with chronic total occlusion of the distal right coronary artery in a segment that was previously stented 2. ? patency of long area of circumflex stenting that was deployed in the remote past 3. ? no significant angiographic progression of coronary disease compared with 2020 4. ? false alarm ST-elevation PR 5. ? infero posterior akinesia overall ejection fraction is normal and LVEDP is also normal Patient now chest pain-free Continue aspirin statin and Plavix Hold beta-fannie due to hypotension (3) Acute hypotension: Code(s): I95.9 - Hypotension, unspecified Status: Acute Assessment and Plan: Likely multifactorial secondary to AFib with RVR, sepsis, dehydration as patient is on diuretics at home Blood pressure has now improved after receiving 3.5 L of fluid. He was started on Levophed in the ER which has been weaned off Continue to monitor closely at this time Recheck lactic acid level (4) Heart failure: Code(s): I50.9 - Heart failure, unspecified Status: Acute Assessment and Plan: Check echocardiogram (5) Atrial fibrillation with rapid ventricular response: Code(s): I48.91 - Unspecified atrial fibrillation Status: Acute Assessment and Plan: Discussed with Cardiology Start amnio bolus and drip Patient is already anticoagulated (6) Colitis: Code(s): K52.9 - Noninfective gastroenteritis and colitis, unspecified Status: Acute Assessment and Plan: Patient has history of a Whipple's surgery and has chronic diarrhea Check C diff Empiric Flagyl and Rocephin Additional Plan DVT prophylaxis -patient is on Eliquis which will be restarted in the morning since his arterial she needs to be removed Nutrition -cardiac diet Code Status - Full Code Total Critical Care Time - 35 minutes Due to a high probability of clinically significant, life threatening deterioration, the patient required my highest level of preparedness to intervene emergently and I personally spent this critical care time directly and personally managing the patient. This critical care time included obtaining a history; examining the patient; pulse oximetry; ordering and review of studies; arranging urgent treatment with development of a management plan; evaluation of patient's response to treatment; frequent reassessment; and discussions with other providers. It was exclusive of separately billable procedures and treating other patients and teaching time. Please see Assessment and Plan section and the rest of the note for further information on patient assessment and treatment [employer] Consult Note Consult date: 04/01/22 Reason for consult: Hypotension, AFib with RVR HPI: Noel Pierre is a 87 year old male with past medical history of coronary disease ischemic cardiomyopathy and atrial fibrillation who is a very poor historian presented today with chest pain sweating and feeling weak. Patient was poor historian and was u
--- NOTE | 2022-04-01 11:40 | ADMGEN ---
This patient, Noel Pierre, was admitted to Intensive Care Unit-8. Patient/family oriented to hospital policies and general routines including ID bracelet, bed and alarms, visiting hours, pain management, procedures, bathroom and other care routines, personal items, smoking policy, room service/diet, and visiting hours. Information on how to activate the Rapid Response Team has been discussed. Patient/Family are encouraged to report perceived risks to care and to ask questions if they do not understand what they are told or what they should do.
[2022-04-01 11:54] LABS: Appearance Urine Clear (Clear); Bilirubin Urine Negative (Negative); Blood Urine Trace-lysed (Negative); Color Urine Yellow (Yellow); Glucose Urine UA Negative (Negative); Ketones Urine Negative (Negative); Leukocyte Esterase Ur Negative LEU/UL (Negative); Nitrate Urine Negative (Negative); Protein Urine 1+ mg/dL (Negative); Urobilinogen Urine 0.2 mg/dL (<2.0)
[2022-04-01 12:00] LABS: Bacteria Urine Trace /hpf; RBC Urine 0-2 /hpf (0-2); WBC Urine 0-3 /hpf
[2022-04-01] MEDS: AMIODARONE 150 MG/D5W 100 ML 150 MG/100 ML BAG 600 MG IV CONT (12:01)
[2022-04-01] MEDS: LACTATED RINGERS 1,000 ML 75 ML IV CONT (12:03)
[2022-04-01 12:05] LABS: Reflex Lactic Acid Yes or No Add Lactic
[2022-04-01 12:13] LABS: Add Urine Microscopic? YES
[2022-04-01 12:25] LABS: Basophils Percent Auto 0.3 % (0.2-1.2); Eosinophils Percent Auto 0.5 % (0-4.4); Hemoglobin 10.9 g/dL (14.0-18.0); Immature Granulocyte Absolute 0.02 K/mm3 (0.00-0.031); Immature Granulocyte Percent A 0.3 % (0-0.5); Lymphocytes Absolute Auto 0.57 K/mm3 (0.9-3.2); Lymphocytes Percent Auto 9.1 % (18.3-44.2); Mean Corpuscular HGB Conc 31.1 g/dl (32-36); Mean Corpuscular Hemoglobin 33.5 pg (26-34); Mean Corpuscular Volume 107.7 fl (80-100); Mean Platelet Volume 11.4 fl (7.4-10.4); Monocytes Absolute Auto 0.5 K/mm3 (0.1-0.6); Monocytes Percent Auto 8.5 % (2.6-8.5); Neutrophils Absolute Auto 5.1 K/mm3 (1.3-6.7); Neutrophils Percent Auto 81.3 % (45.5-73.1); Platelet Count Result 154 k/mm3 (150-375); Red Blood Count 3.25 M/mm3 (4.6-6.20); Red Cell Distribution Width 14.4 % (11.5-14.5); White Blood Count 6.2 K/mm3 (4.5-10.0)
[2022-04-01] MEDS: AMIODARONE 360 MG/D5W 200 ML 360 MG/200 ML BAG 33.33 MG IV CONT (12:30)
[2022-04-01] MEDS: ALBUMIN HUMAN 25% 25 GM/100 ML 100 ML IVPB ×3 (12:32→23:12)
[2022-04-01 12:52] LABS: Troponin I 0.234 ng/mL (0.000-0.034)
[2022-04-01 12:57] LABS: Anisocytosis 1+ (NORMAL); Ovalocytes 1+ (NORMAL); Platelet Estimate Adequate (Adequate); Poikilocytosis 1+ (NORMAL)
[2022-04-01 13:03] LABS: Lactic Acid Reflex 1.8 mmol/L (0.7-2.0)
[2022-04-01 13:05] LABS: INR 1.4; Partial Thromboplastin Time 32.4 SECONDS (22.3-36.8); Prothrombin Time 16.5 Seconds (11.1-14.7)
[2022-04-01] MEDS: PERFLUTREN LIPID MICROSPHERES 1.5 ML VIAL DILUTED TO 10 ML TOTAL VOLUME IV PUSH (13:27)
--- NOTE | 2022-04-01 13:27 | IVDEFINITY ---
Prior to administration of IV Definity the patient was educated on the risks and benefits of the imaging enhancing agent including potential adverse side effects. The patient verbalized understanding. Allergies were verified. No exclusion criteria were identified and at least one of the following inclusion criteria were met: 1) physician request, 2) patient technically difficult to image (per the [place] [employer] guidelines of two or more segments not discernable within the apical view), or 3) questionable left ventricular function. ?
[2022-04-01] MEDS: metroNIDAZOLE 250MG/ISO 50 ML 250 MG/50 ML BAG 50 MG IVPB ×2 (13:44→20:08)
[2022-04-01] MEDS: HEPARIN SOD/D5W 100 UNITS/ML 25,000 UNITS/250 ML BAG 10 UNITS IV CONT (13:44)
[2022-04-01] MEDS: DOXYCYCLINE 100 MG/NS 100 ML 100 MG/100 ML BAG IVPB (13:46)
[2022-04-01] MEDS: AMIODARONE 360 MG/D5W 200 ML 360 MG/200 ML BAG 16.67 MG IV CONT (17:51)
[2022-04-01 20:08] LABS: Partial Thromboplastin Time 44.1 SECONDS (22.3-36.8)
[2022-04-02] VITALS (28 sets, daily range): BP systolic 121–155; BP diastolic 70–105; PULSE 80–126; RESP 15–28; TEMP 36.6–37.7; O2SAT 87–100
[2022-04-02] MEDS: metroNIDAZOLE 250MG/ISO 50 ML 250 MG/50 ML BAG 50 MG IVPB ×4 (02:04→20:11)
[2022-04-02] MEDS: DOXYCYCLINE 100 MG/NS 100 ML 100 MG/100 ML BAG IVPB ×2 (02:04→15:29)
[2022-04-02 03:04] LABS: Partial Thromboplastin Time 127.6 SECONDS (22.3-36.8)
[2022-04-02] MEDS: LACTATED RINGERS 1,000 ML 75 ML IV CONT (04:30)
[2022-04-02] MEDS: AMIODARONE 360 MG/D5W 200 ML 360 MG/200 ML BAG 16.67 MG IV CONT ×2 (04:31→15:24)
[2022-04-02 04:32] LABS: Basophils Percent Auto 0.6 % (0.2-1.2); Eosinophils Percent Auto 0.6 % (0-4.4); Hematocrit 28.4 % (42.0-52.0); Hemoglobin 9.2 g/dL (14.0-18.0); Immature Granulocyte Absolute 0.01 K/mm3 (0.00-0.031); Immature Granulocyte Percent A 0.2 % (0-0.5); Lymphocytes Absolute Auto 0.65 K/mm3 (0.9-3.2); Mean Corpuscular HGB Conc 32.4 g/dl (32-36); Mean Corpuscular Hemoglobin 33.3 pg (26-34); Mean Corpuscular Volume 102.9 fl (80-100); Mean Platelet Volume 10.6 fl (7.4-10.4); Monocytes Absolute Auto 0.5 K/mm3 (0.1-0.6); Monocytes Percent Auto 9.1 % (2.6-8.5); Neutrophils Absolute Auto 4.2 K/mm3 (1.3-6.7); Neutrophils Percent Auto 77.5 % (45.5-73.1); Platelet Count Result 141 k/mm3 (150-375); Red Blood Count 2.76 M/mm3 (4.6-6.20); Red Cell Distribution Width 14.2 % (11.5-14.5); White Blood Count 5.4 K/mm3 (4.5-10.0)
[2022-04-02 04:43] LABS: Alanine Aminotransferase 10 U/L (6-50); Albumin Level 3.2 g/dL (3.5-5.1); Alkaline Phosphatase 84 U/L (38-126); Anion Gap 8 mmol/L (8-16); Aspartate Amino Transferase 28 U/L (17-59); Bilirubin,Total 0.2 mg/dL (0.2-1.3); Blood Urea Nitrogen 16 mg/dL (9-20); Calcium 7.5 mg/dL (8.4-10.2); Carbon Dioxide 21 mmol/L (22-30); Chloride 109 mmol/L (98-107); Estimated CRCL calculation 42 ml/min; Estimated Glomerular Filt Rate 52; Glucose 118 mg/dL (65-110); Magnesium 1.5 mg/dL (1.6-2.3); Phosphorus 3.3 mg/dL (2.5-4.5); Potassium 3.4 mmol/L (3.4-5.0); Sodium 138 mmol/L (137-145)
[2022-04-02] MEDS: ALBUMIN HUMAN 25% 25 GM/100 ML 100 ML IVPB (05:49)
[2022-04-02] MEDS: HEPARIN SOD/D5W 100 UNITS/ML 25,000 UNITS/250 ML BAG 11 UNITS IV CONT (05:55)
--- NOTE | 2022-04-02 09:09 | PM.PNCARD ---
Progress Note: A&P Assessment and Plan (1) Shock: Code(s): R57.9 - Shock, unspecified Status: Acute Assessment and Plan: Pt admitted with shock, thought to be due to pneumonia and dehydration. Improved after IV fluids and antibiotics. Levophed has been discontinued and BP stable. (2) Atrial fibrillation with rapid ventricular response: Code(s): I48.91 - Unspecified atrial fibrillation Status: Acute Assessment and Plan: history of PAF, maintaining sinus rhythm since cardioversion January 2021. Admitted with AFib RVR, heart rate improved on IV amiodarone on Eliquis as an outpatient, last dose Wednesday p.m. now on heparin transition IV amiodarone to p.o. metoprolol remove arterial sheath tonight and resume Eliquis tmr. (3) Type 2 MO (myocardial infarction): Code(s): I21.A1 - Myocardial infarction type 2 Status: Acute Assessment and Plan: History of CAD, stents, CT0 of the PDA. Admitted with elevated trop and ischemic ST changes, prob secondary to his hypotension cardiac catheterization not show any new lesions: CT0 of the PDA. repeat EKG for a new normal since he seems have a new LBBB yesterday as well. Resume aspirin, later resume Eliquis tmr once is arterial sheath has been discontinued. (4) Cardiomyopathy: Code(s): I42.9 - Cardiomyopathy, unspecified Status: Acute Assessment and Plan: H/O cardiomyopathy and CHF, with some recovery of LV fxn EF stable, >45% Resume Entresto at a later date. (5) Sepsis: Code(s): A41.9 - Sepsis, unspecified organism Status: Acute Assessment and Plan: Possible pneumonia Check CXR in a.m. Subjective Date/time seen: 04/02/22 09:09 FU for hypotension and shock, CAD, a fib on Eliquis. The patient was admitted yesterday with hypertension, chest discomfort and ST depression. Emergent cardiac catheterization did not show any new lesions; he has a chronic total occlusion of the PDA. His inferior posterior segment was akinetic but overall had good LV function. Echo EF appeared greater than 45%. He was started on IV amiodarone for AFib RVR and Levophed for his hypotension. He was admitted to the ICU with a diagnosis of sepsis due to pneumonia and possible colitis, mild dehydration. COVID neg. Date of service 04/02/2022: The patient blood pressure improved after receiving 3.5 L of fluids and his Levophed was discontinued. Troponin did go up to 2.8. He is on a heparin drip. Pt is feeling well. HIs main complaint is that he is not allowed to move around as he has the arterial sheath in his right femoral artery from the cardiac cath. No CP, SOB, abdom pain. Review of Systems Constitutional: Constitutional: Denies fever(s) Comments: Uncomfortable taht he can't move around Cardiovascular: Cardiovascular: Denies chest pain, Denies pedal edema, Denies lightheadedness and Denies dyspnea Respiratory: Respiratory: Denies chest congestion and Denies dyspnea Gastrointestinal: Gastrointestinal: Denies abdominal pain and Denies hematochezia Musculoskeletal: Musculoskeletal: Reports arthralgias and Reports neck pain Integumentary/Breasts: Skin/Breast: Reports system reviewed and no additional complaints, except as docu Neurologic: Reports system reviewed and no additional complaints, except as documented, Denies behavioral changes and Denies confusion Psychiatric: Psychiatric: Denies behavioral changes and Denies confusion Exam Const: General: cooperative, healthy appearing and comfortable; No confusion Orientation/consciousness: oriented to person, patient oriented x3 and No confusion Other: Bright and alert, recognizes me, says he thought he was going to [place] in the [facility] yesterday. HENMT: Mouth: Yes moist mucous membranes Eyes: EOM: EOMs intact bilaterally Resp: Effort & Inspection: normal respiratory effo
--- NOTE | 2022-04-02 09:59 | ECG_ITS ---
Measurements Intervals [place] Rate: 102 P: CT: 0 QRS: -72 QRSD: 140 T: 77 QT: 387 QTc: 505 Interpretive Statements ATRIAL FIBRILLATION WITH RAPID VENTRICULAR RESPONSE MARKED LEFT AXIS DEVIATION [QRS AXIS < -30] LEFT BUNDLE BRANCH BLOCK [120+ ms QRS DURATION, 80+ ms Q/S IN V1/V2, 85+ ms R IN I/aVL/V5/V6] COMPARED TO ECG 04/01/2022 09:17:31 THE PREVIOUSLY NOTED ISCHEMIC ST DEPRESSION HAS RESOLVED Electronically Signed On 04-02-2022 18:26:20 CDT by Vivian Garza M.D.
--- NOTE | 2022-04-02 10:55 | WPDINTPN ---
Progress Note: A&P Assessment and Plan (1) Sepsis: Code(s): A41.9 - Sepsis, unspecified organism Status: Acute Assessment and Plan: Secondary to pneumonia and possible colitis. 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 I will order another 500 mL Levophed has been weaned off I will discontinue IV fluids UA was negative for any evidence of infection Blood cultures have been sent and are pending Pending urine Legionella and pneumococcal antigen Plan was to check for stool for C diff but patient has not had any significant diarrhea here Continue empiric cefepime doxycycline and Flagyl (2) Chest pain: Code(s): R07.9 - Chest pain, unspecified Status: Acute Assessment and Plan: Atypical chest pain as per history with negative troponin Abnormal EKG and past medical history of coronary disease service stenting Patient had cardiac catheterization done as he was suspected to have STEMI and showed 1. coronary artery disease with chronic total occlusion of the distal right coronary artery in a segment that was previously stented 2. ? patency of long area of circumflex stenting that was deployed in the remote past 3. ? no significant angiographic progression of coronary disease compared with 2020 4. ? false alarm ST-elevation [place] 5. ? infero posterior akinesia overall ejection fraction is normal and LVEDP is also normal Patient now chest pain-free Continue aspirin statin and Plavix Beta-fannie resume Echocardiogram reviewed Cardiology plans to remove arterial sheath today after discontinuation heparin and resume Eliquis from tomorrow (3) Acute hypotension: Code(s): I95.9 - Hypotension, unspecified Status: Acute Assessment and Plan: Likely multifactorial secondary to AFib with RVR, sepsis, dehydration as patient is on diuretics at home Blood pressure has now improved after receiving 3.5 L of fluid. He was started on Levophed in the ER which has been weaned off Lactic acid has normalized Discontinue IV fluids (4) Heart failure: Code(s): I50.9 - Heart failure, unspecified Status: Acute Assessment and Plan: Echocardiogram Summary ? 1. Normal LV size with mild hypertrophy.? Endocardium is poorly visualized and left ventricular function is difficult to assess; ejection fraction greater than 45%.? Grade 2 diastolic dysfunction is present. ? 2. No significant valve disease. ? 3. Atrial fibrillation. ? 4. Very technically difficult study.? Definity echo contrast used.? Unable to position the patient for optimal imaging.? Consider repeating the study at a later date, if clinically indicated. (5) Atrial fibrillation with rapid ventricular response: Code(s): I48.91 - Unspecified atrial fibrillation Status: Acute Assessment and Plan: Discussed with Cardiology Patient was started on amiodarone infusion yesterday He will be transition to p.o. metoprolol today Patient is already anticoagulated (6) Colitis: Code(s): K52.9 - Noninfective gastroenteritis and colitis, unspecified Status: Acute Assessment and Plan: Patient has history of a Whipple's surgery and has chronic diarrhea No significant diarrhea here in the ICU Empiric Flagyl and cefepime Additional Plan DVT prophylaxis -patient is on heparin infusion Nutrition -cardiac diet Code Status - Full Code Subjective Date/time seen: 04/02/22 10:55 Patient states that he feels much better this morning although he would like his sheath in right groin to be removed. He denies any shortness of breath or chest pain this morning. No dizziness nausea vomiting abdominal pain headache. He does admit to having some cough which is associated with phlegm. All other systems were reviewed and were negative. He is on hepar
[2022-04-02] MEDS: METOPROLOL TARTRATE 25 MG TABLET PO ×2 (11:04→20:12)
[2022-04-02] MEDS: MAGNESIUM SULF 2 GM/WATER 50ML 2 GM/50 ML BAG IVPB (11:04)
[2022-04-02] MEDS: ATORVASTATIN 10 MG TABLET PO (11:04)
[2022-04-02] MEDS: POTASSIUM CHLORIDE 20 MEQ TABLET 40 MEQ PO (11:17)
[2022-04-02] MEDS: HEPARIN SODIUM 5,000 UNITS/ML VIAL 3500 UNITS IV PUSH (11:19)
[2022-04-02 16:47] LABS: Partial Thromboplastin Time 33.9 SECONDS (22.3-36.8)
--- NOTE | 2022-04-02 18:40 | PC.NURSE ---
Patient not on continuous levophed drip at change of shift this morning. BP stable.
[2022-04-02] MEDS: TAMSULOSIN HCL 0.4 MG CAPSULE PO (20:12)
[2022-04-02] MEDS: ATORVASTATIN 5 MG TABLET PO (20:12)
[2022-04-02] MEDS: FINASTERIDE 5 MG TABLET PO (20:12)
[2022-04-02] MEDS: MELATONIN 3 MG TABLET PO (21:54)
[2022-04-03] VITALS (16 sets, daily range): BP systolic 94–134; BP diastolic 56–101; PULSE 53–117; RESP 16–25; TEMP 35.7–37.7; O2SAT 96–100; BMI 30.4
[2022-04-03] MEDS: DOXYCYCLINE 100 MG/NS 100 ML 100 MG/100 ML BAG IVPB (03:04)
[2022-04-03] MEDS: metroNIDAZOLE 250MG/ISO 50 ML 250 MG/50 ML BAG 50 MG IVPB (03:04)
[2022-04-03] MEDS: AMIODARONE 360 MG/D5W 200 ML 360 MG/200 ML BAG 16.67 MG IV CONT (03:05)
[2022-04-03 05:06] LABS: Hematocrit 35.8 % (42.0-52.0); Hemoglobin 11.2 g/dL (14.0-18.0); Immature Platelet Fraction Pct 8.5 % (0.9-11.2); Mean Corpuscular HGB Conc 31.3 g/dl (32-36); Mean Corpuscular Hemoglobin 33.4 pg (26-34); Mean Corpuscular Volume 106.9 fl (80-100); Mean Platelet Volume 11.7 fl (7.4-10.4); Platelet Count Result 150 k/mm3 (150-375); Red Blood Count 3.35 M/mm3 (4.6-6.20); Red Cell Distribution Width 14.6 % (11.5-14.5); White Blood Count 8.9 K/mm3 (4.5-10.0)
[2022-04-03 05:16] LABS: Alanine Aminotransferase 12 U/L (6-50); Albumin Level 3.2 g/dL (3.5-5.1); Alkaline Phosphatase 99 U/L (38-126); Anion Gap 9 mmol/L (8-16); Aspartate Amino Transferase 21 U/L (17-59); Bilirubin,Total 0.4 mg/dL (0.2-1.3); Blood Urea Nitrogen 20 mg/dL (9-20); Carbon Dioxide 21 mmol/L (22-30); Chloride 104 mmol/L (98-107); Estimated CRCL calculation 43 ml/min; Estimated Glomerular Filt Rate 52; Glucose 123 mg/dL (65-110); Magnesium 1.8 mg/dL (1.6-2.3); Phosphorus 3.8 mg/dL (2.5-4.5); Potassium 3.8 mmol/L (3.4-5.0); Sodium 134 mmol/L (137-145)
[2022-04-03] MEDS: METOPROLOL TARTRATE 25 MG TABLET PO (05:57)
--- NOTE | 2022-04-03 08:55 | PM.PNCARD ---
Progress Note: A&P Assessment and Plan (1) Shock: Code(s): R57.9 - Shock, unspecified Status: Acute (2) Chest pain: Code(s): R07.9 - Chest pain, unspecified Status: Acute (3) Atrial fibrillation with rapid ventricular response: Code(s): I48.91 - Unspecified atrial fibrillation Status: Acute Plan 87-year-old man presenting with clinical picture compatible with sepsis and false alarm declaration of acute MT. Angiography at as mentioned in previous notes did not demonstrate any evidence of MT. he does have inferior hypokinesia and mildly reduced ejection fraction as well as persistent atrial fibrillation. Today we will move him out of the ICU. Apixaban has been resumed for his atrial fib. I will transition him to long-acting metoprolol as well as start ARB therapy for his ischemic LV dysfunction. He can be moved to the IMU today. Anticipate several more days in the hospital recovering from this event. He is now on p.o. antibiotics. Nikko Woods MD [facility] Subjective Date/time seen: date of service:04/03/22 08:55 Interval history: Follow-up visit in this 87-year-old man with: Admission to the hospital with what appears to have and the clinical picture of sepsis. Patient has a new left bundle branch block and ST segment changes prompting the initial opinion that acute MT was the diagnosis. Angiography was performed as mentioned in my note did not demonstrate any changes in his coronary anatomy compared with last year. Left bundle branch block however appears to be new. He persists in atrial fibrillation during this hospital stay. Has been placed on amiodarone and we are advancing his metoprolol dosage. The patient is comfortable this morning asymptomatic and appears to be in good spirits. Exam Const: General: comfortable and no acute distress HENMT: Mouth: Yes moist mucous membranes Eyes: Sclera: sclerae normal Neck: Neck: supple and no JVD Resp: Effort & Inspection: normal respiratory effort Auscultation: clear to auscultation bilaterally Cardio: Rhythm: abnormal rhythm irregularly irregular GI: GI Palp: Yes Soft to palpation Auscultation: normal bowel sounds Skin: General skin exam: normal color Neuro: Other: Alert and oriented mentation has cleared compared with admission Extrem: General: normal to inspection Objective Data Vital Signs Vital Signs: Vital Signs - 24 hr 04/02/22 11:04 04/02/22 10:00 04/02/22 12:00 Temperature 36.9 C Pulse Rate 99 126 H Pulse Rate [Left Pedal (Dorsalis Pedis) Palpation] Pulse Rate [Right Pedal (Dorsalis Pedis) Doppler] Respiratory Rate 19 Blood Pressure 150/86 H Pulse Oximetry 100 Oxygen Delivery Room Air Oxygen Flow Rate 04/02/22 12:00 04/02/22 14:00 04/02/22 10:00 Temperature 36.6 C 37.0 C Pulse Rate 105 H 103 H 117 H Pulse Rate [Left Pedal (Dorsalis Pedis) Palpation] Pulse Rate [Right Pedal (Dorsalis Pedis) Doppler] Respiratory Rate 21 H 20 Blood Pressure 144/85 H 153/94 H Pulse Oximetry 100 99 Oxygen Delivery Oxygen Flow Rate 04/02/22 12:00 04/02/22 14:00 04/02/22 15:24 Temperature Pulse Rate 105 H 103 H 92 Pulse Rate [Left Pedal (Dorsalis Pedis) Palpation] Pulse Rate [Right Pedal (Dorsalis Pedis) Doppler] Respiratory Rate Blood Pressure 136/71 Pulse Oximetry Oxygen Delivery Oxygen Flow Rate 04/02/22 15:24 04/02/22 15:54 04/02/22 16:00 Temperature 37.1 C Pulse Rate 92 80 Pulse Rate [Left Pedal (Dorsalis Pedis) Palpation] Pulse Rate [Right Pedal (Dorsalis Pedis) Doppler] Respiratory Rate 20 Blood Pressure 136/71 146/81 H Pulse Oximetry 97 97 Oxygen Delivery Room Air Oxygen Flow Rate 04/02/22 16:00 04/02/22 18:00 04/02/22 18:00 Temperature 37.0 C Pulse Rate 99 95 95 Pulse Rate [Left Pedal (Dorsalis Pedis) Palpation] Pulse Rate [Right Pedal (Dorsalis Pedis) Doppler] Respiratory Rate
--- NOTE | 2022-04-03 09:16 | WPDINTPN ---
Progress Note: A&P Assessment and Plan (1) Sepsis: Code(s): A41.9 - Sepsis, unspecified organism Status: Acute Assessment and Plan: Secondary to pneumonia and possible colitis. 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 I will order another 500 mL Levophed has been weaned off Off IV fluids UA was negative for any evidence of infection Blood cultures have been sent and are pending Plan was to check for stool for C diff but patient has not had any significant diarrhea here Change antibiotics to p.o. Augmentin and Flagyl (2) Chest pain: Code(s): R07.9 - Chest pain, unspecified Status: Acute Assessment and Plan: Atypical chest pain as per history with negative troponin Abnormal EKG and past medical history of coronary disease service stenting Patient had cardiac catheterization done as he was suspected to have STEMI and showed 1. coronary artery disease with chronic total occlusion of the distal right coronary artery in a segment that was previously stented 2. ? patency of long area of circumflex stenting that was deployed in the remote past 3. ? no significant angiographic progression of coronary disease compared with 2020 4. ? false alarm ST-elevation [place] 5. ? infero posterior akinesia overall ejection fraction is normal and LVEDP is also normal Patient now chest pain-free Continue aspirin statin and Plavix Beta-fannie started Echocardiogram reviewed Eliquis resume (3) Acute hypotension: Code(s): I95.9 - Hypotension, unspecified Status: Acute Assessment and Plan: Likely multifactorial secondary to AFib with RVR, sepsis, dehydration as patient is on diuretics at home Blood pressure has now improved after receiving 3.5 L of fluid. He was started on Levophed in the ER which has been weaned off Lactic acid has normalized Off IV fluids (4) Heart failure: Code(s): I50.9 - Heart failure, unspecified Status: Acute Assessment and Plan: Echocardiogram Summary ? 1. Normal LV size with mild hypertrophy.? Endocardium is poorly visualized and left ventricular function is difficult to assess; ejection fraction greater than 45%.? Grade 2 diastolic dysfunction is present. ? 2. No significant valve disease. ? 3. Atrial fibrillation. ? 4. Very technically difficult study.? Definity echo contrast used.? Unable to position the patient for optimal imaging.? Consider repeating the study at a later date, if clinically indicated. (5) Atrial fibrillation with rapid ventricular response: Code(s): I48.91 - Unspecified atrial fibrillation Status: Acute Assessment and Plan: Discussed with Cardiology Patient has been on amiodarone infusion which will be discontinued today. Patient has been started on p.o. metoprolol. I have add IV p.r.n. metoprolol Patient is now anticoagulated with Eliquis (6) Colitis: Code(s): K52.9 - Noninfective gastroenteritis and colitis, unspecified Status: Acute Assessment and Plan: Patient has history of a Whipple's surgery and has chronic diarrhea No significant diarrhea here in the ICU On empiric antibiotics Additional Plan DVT prophylaxis -Eliquis Nutrition -cardiac diet Code Status - Full Code Transfer out of ICU today Subjective Date/time seen: 04/03/22 09:16 Overnight events reviewed. Afebrile Patient denies any complaints this morning feels good. Patient denies fever, chest pain, shortness of breath, cough, nausea vomiting, abdominal pain, diarrhea, headache or constipation. All other systems were reviewed and were negative Continues to be on amiodarone infusion His arterial sheath was removed yesterday Vitals acceptable Urine output is on the lower side Review of Systems Review of Systems: All systems reviewed & are
[2022-04-03] MEDS: MAGNESIUM SULF 2 GM/WATER 50ML 2 GM/50 ML BAG IVPB (09:18)
[2022-04-03] MEDS: LOSARTAN POTASSIUM 25 MG TABLET PO (09:30)
[2022-04-03] MEDS: METOPROLOL SUCCINATE EXT REL 100 MG TABCR PO (09:30)
[2022-04-03] MEDS: AMOXICILLIN/CLAVULANATE K 875-125 MG TAB 1 TABLET PO ×2 (09:30→20:35)
[2022-04-03] MEDS: ASPIRIN 81 MG CHEWABLE TABLET PO (09:31)
[2022-04-03] MEDS: TAMSULOSIN HCL 0.4 MG CAPSULE PO ×2 (09:32→20:38)
[2022-04-03] MEDS: APIXABAN 5 MG TABLET PO ×2 (09:32→20:36)
[2022-04-03] MEDS: FERROUS SULFATE 324 MG TABLET PO (09:32)
--- NOTE | 2022-04-03 13:32 | PC.NURSE ---
This patient, Noel Pierre, was received from [[id number] ] on 04/03/22 at 1140. Patient/family oriented to unit policies and routines
[2022-04-03] MEDS: metroNIDAZOLE 250 MG TABLET 500 MG PO ×2 (14:12→21:11)
[2022-04-03] MEDS: ATORVASTATIN 5 MG TABLET PO (20:37)
[2022-04-03] MEDS: FINASTERIDE 5 MG TABLET PO (20:37)
[2022-04-03] MEDS: MELATONIN 3 MG TABLET PO (21:03)
[2022-04-04] VITALS (16 sets, daily range): BP systolic 75–125; BP diastolic 45–70; PULSE 65–101; RESP 16–24; TEMP 36.4–36.7; O2SAT 97–100
[2022-04-04 04:56] LABS: Hematocrit 33.5 % (42.0-52.0); Hemoglobin 10.7 g/dL (14.0-18.0); Immature Platelet Fraction Pct 9.7 % (0.9-11.2); Mean Corpuscular HGB Conc 31.9 g/dl (32-36); Mean Corpuscular Hemoglobin 33.8 pg (26-34); Mean Corpuscular Volume 105.7 fl (80-100); Mean Platelet Volume 11.7 fl (7.4-10.4); Platelet Count Result 139 k/mm3 (150-375); Red Blood Count 3.17 M/mm3 (4.6-6.20); Red Cell Distribution Width 14.5 % (11.5-14.5)
[2022-04-04 05:14] LABS: Alanine Aminotransferase 9 U/L (6-50); Albumin Level 2.6 g/dL (3.5-5.1); Alkaline Phosphatase 80 U/L (38-126); Anion Gap 8 mmol/L (8-16); Aspartate Amino Transferase 15 U/L (17-59); Bilirubin,Total 0.4 mg/dL (0.2-1.3); Blood Urea Nitrogen 28 mg/dL (9-20); Calcium 7.6 mg/dL (8.4-10.2); Carbon Dioxide 20 mmol/L (22-30); Chloride 105 mmol/L (98-107); Estimated CRCL calculation 35 ml/min; Estimated Glomerular Filt Rate 41; Glucose 115 mg/dL (65-110); Phosphorus 3.5 mg/dL (2.5-4.5); Potassium 3.8 mmol/L (3.4-5.0); Sodium 133 mmol/L (137-145)
[2022-04-04] MEDS: metroNIDAZOLE 250 MG TABLET 500 MG PO ×3 (05:33→22:45)
[2022-04-04] MEDS: APIXABAN 5 MG TABLET PO ×2 (09:26→20:59)
[2022-04-04] MEDS: AMOXICILLIN/CLAVULANATE K 875-125 MG TAB 1 TABLET PO ×2 (09:26→20:58)
[2022-04-04] MEDS: FERROUS SULFATE 324 MG TABLET PO (09:26)
[2022-04-04] MEDS: TAMSULOSIN HCL 0.4 MG CAPSULE PO ×2 (09:27→21:00)
[2022-04-04] MEDS: SODIUM CHLORIDE 0.9% IV 500 ML 999 ML IV CONT (10:08)
[2022-04-04] MEDS: ASPIRIN 81 MG CHEWABLE TABLET PO (10:14)
[2022-04-04 12:06] LABS: Vancomycin Trough < 5.0 ug/mL (10.0-20.0)
--- NOTE | 2022-04-04 12:22 | PM.PNCARD ---
Progress Note: A&P Assessment and Plan (1) Shock: Code(s): R57.9 - Shock, unspecified Status: Acute Assessment and Plan: BP variable, more hypotensive this morning. Improved with IV fluids. Patient has no specific complaints, afebrile no leukocytosis. He is not appear to be septic. Will give IV fluid bolus. Repeat BP repeat if necessary. Repeat urinalysis, chest x-ray if BP remains low. May need to add midodrine. Hold Toprol XL and losartan. Remains on antibiotic. Patient otherwise has no specific complaints. (2) Cardiomyopathy: Code(s): I42.9 - Cardiomyopathy, unspecified Status: Acute Assessment and Plan: New diagnosis, not tolerating medical therapy at this time due to hypotension. Continue monitor closely. (3) Atrial fibrillation with rapid ventricular response: Code(s): I48.91 - Unspecified atrial fibrillation Status: Acute Assessment and Plan: Heart rate variable, intermittently with RVR. Beta-fannie held continue to monitor on telemetry. Remains on anticoagulation. (4) Chest pain: Code(s): R07.9 - Chest pain, unspecified Status: Acute Assessment and Plan: Resolved. No complaints in this regard Plan 87-year-old man presenting with clinical picture compatible with sepsis and false alarm declaration of acute AK. Angiography at as mentioned in previous notes did not demonstrate any evidence of AK. he does have inferior hypokinesia and mildly reduced ejection fraction as well as persistent atrial fibrillation. Today we will move him out of the ICU. Apixaban has been resumed for his atrial fib. I will transition him to long-acting metoprolol as well as start ARB therapy for his ischemic LV dysfunction. He can be moved to the IMU today. Anticipate several more days in the hospital recovering from this event. He is now on p.o. antibiotics. Nikko Woods MD [facility] Subjective Date/time seen: Date of service: 04/04/22 12:22 Interval history: Follow-up visit in this 87-year-old man with: Admission to the hospital with what appears to have and the clinical picture of sepsis. Patient has a new left bundle branch block and ST segment changes prompting the initial opinion that acute AK was the diagnosis. Angiography was performed as mentioned in my note did not demonstrate any changes in his coronary anatomy compared with last year. Left bundle branch block however appears to be new. He persists in atrial fibrillation during this hospital stay. Has been placed on amiodarone and we are advancing his metoprolol dosage. BP was stable until this morning when he began to feel more lightheaded when working with therapy. Systolic blood pressure 80 mm Hg, Given IV normal saline bolus with improvement with SBP to 100 mmHg. Patient feels a little weaker in dizzy which he states he has dealt with for many years off and on. No chest pain, shortness of breath or palpitations. No new issues overnight. Losartan and Toprol XL held this morning. Patient did not eat breakfast this morning. No fevers, chills, nausea vomiting, bleeding. Review of Systems Review of Systems: Feels more fatigued, lightheaded dizzy upon standing ROS unobtainable: Yes unobtainable due to medical condition Constitutional: Constitutional: Denies fever(s) ENT: Reports neck pain Cardiovascular: Cardiovascular: Denies chest pain, Denies pedal edema, Denies lightheadedness and Denies dyspnea Respiratory: Respiratory: Denies chest congestion and Denies dyspnea Gastrointestinal: Gastrointestinal: Denies abdominal pain and Denies hematochezia Musculoskeletal: Musculoskeletal: Reports arthralgias and Reports neck pain Integumentary/Breasts: Skin/Breast: Reports system reviewed and no additional complaints, except as docu Neurologic: Reports system reviewed and no additional complaints, except as documented, Denies behavioral changes and Denies confusion Psychiatric:
[2022-04-04] MEDS: FINASTERIDE 5 MG TABLET PO (20:59)
[2022-04-04] MEDS: ATORVASTATIN 5 MG TABLET PO (21:00)
[2022-04-04] MEDS: MELATONIN 3 MG TABLET PO (22:46)
[2022-04-05] VITALS (13 sets, daily range): BP systolic 88–113; BP diastolic 49–69; PULSE 56–114; RESP 16–24; TEMP 36.4–36.8; O2SAT 98–100
[2022-04-05 04:59] LABS: Alanine Aminotransferase 9 U/L (6-50); Albumin Level 2.6 g/dL (3.5-5.1); Alkaline Phosphatase 76 U/L (38-126); Anion Gap 7 mmol/L (8-16); Aspartate Amino Transferase 14 U/L (17-59); Bilirubin,Total 0.3 mg/dL (0.2-1.3); Blood Urea Nitrogen 29 mg/dL (9-20); Calcium 7.4 mg/dL (8.4-10.2); Carbon Dioxide 23 mmol/L (22-30); Chloride 106 mmol/L (98-107); Estimated CRCL calculation 36 ml/min; Estimated Glomerular Filt Rate 41; Glucose 119 mg/dL (65-110); Magnesium 1.9 mg/dL (1.6-2.3); Phosphorus 3.3 mg/dL (2.5-4.5); Potassium 3.7 mmol/L (3.4-5.0); Sodium 136 mmol/L (137-145)
[2022-04-05 05:00] LABS: Hematocrit 32.3 % (42.0-52.0); Hemoglobin 10.4 g/dL (14.0-18.0); Mean Corpuscular HGB Conc 32.2 g/dl (32-36); Mean Corpuscular Hemoglobin 33.4 pg (26-34); Mean Corpuscular Volume 103.9 fl (80-100); Mean Platelet Volume 12.1 fl (7.4-10.4); Platelet Count Result 136 k/mm3 (150-375); Red Blood Count 3.11 M/mm3 (4.6-6.20); Red Cell Distribution Width 14.3 % (11.5-14.5); White Blood Count 5.6 K/mm3 (4.5-10.0)
[2022-04-05] MEDS: metroNIDAZOLE 250 MG TABLET 500 MG PO ×3 (06:19→21:32)
[2022-04-05] MEDS: AMOXICILLIN/CLAVULANATE K 875-125 MG TAB 1 TABLET PO ×2 (09:44→21:31)
[2022-04-05] MEDS: TAMSULOSIN HCL 0.4 MG CAPSULE PO ×2 (09:44→21:31)
[2022-04-05] MEDS: APIXABAN 5 MG TABLET PO ×2 (09:45→21:32)
[2022-04-05] MEDS: METOPROLOL SUCCINATE EXT REL 100 MG TABCR PO (09:45)
[2022-04-05] MEDS: FERROUS SULFATE 324 MG TABLET PO (09:45)
[2022-04-05] MEDS: ASPIRIN 81 MG CHEWABLE TABLET PO (09:47)
[2022-04-05] MEDS: SODIUM CHLORIDE 0.9% IV 250 ML 999 ML IV CONT (11:52)
--- NOTE | 2022-04-05 14:01 | PM.PNCARD ---
Progress Note: A&P Assessment and Plan (1) Orthostatic hypotension: Code(s): I95.1 - Orthostatic hypotension Status: Acute Assessment and Plan: Hypotension improved with IV fluids yesterday although remains mildly orthostatic with symptoms this morning Will give an additional IV normal saline 250 cc. Reduce Toprol XL to 50 mg daily. Acute kidney injury after receiving losartan with hypotension yesterday. Recheck BMP in a.m.. With IV fluids. Patient has no specific complaints, afebrile no leukocytosis. He is not appear to be septic. Will give IV fluid bolus. Repeat BP repeat if necessary. Repeat urinalysis, chest x-ray if BP remains low. May need to add midodrine if persistent symptomatic hypotension. Unable to resume losartan for supportive LV function. (2) Atrial fibrillation with rapid ventricular response: Code(s): I48.91 - Unspecified atrial fibrillation Status: Acute Assessment and Plan: Heart rate variable, intermittently with RVR fair control. Received Toprol XL 100 mg this morning although remains mildly orthostatic. May need to reduce to 50 mg daily as above. Beta-fannie held continue to monitor on telemetry. Remains on anticoagulation. (3) Acute kidney injury: Code(s): N17.9 - Acute kidney failure, unspecified Status: Acute Assessment and Plan: Recheck BMP in a.m.. If improved, tolerating discontinuation of Maxwell catheter, minimally symptomatic or no symptoms of orthostasis on medical therapy may consider discharge home. (4) Cardiomyopathy: Code(s): I42.9 - Cardiomyopathy, unspecified Status: Acute Assessment and Plan: New diagnosis, not tolerating medical therapy at this time due to hypotension. Continue monitor closely. Unable to tolerate ARB or diuretic therapy. (5) Chest pain: Code(s): R07.9 - Chest pain, unspecified Status: Acute Assessment and Plan: Resolved. No complaints in this regard Subjective Date/time seen: Date of service: 04/05/22 14:01 Interval history: Follow-up visit in this 87-year-old man with: Admission to the hospital with what appears to have and the clinical picture of sepsis. Patient has a new left bundle branch block and ST segment changes prompting the initial opinion that acute NM was the diagnosis. Angiography was performed as mentioned in my note did not demonstrate any changes in his coronary anatomy compared with last year. Left bundle branch block however appears to be new. He persists in atrial fibrillation during this hospital stay. Has been placed on amiodarone and we are advancing his metoprolol dosage. Patient feels much better. States he feels normal when he got up last night to use the restroom. This morning feels only slightly dizzy for a 2nd. He was borderline orthostatic with his vital signs. Eating and drinking normally. Maxwell catheter remains in place. Given Toprol XL 100 mg this morning, heart rate 80s to 100s. No chest pain, shortness of breath or palpitations. States he does feel better overall. No fevers or chills, no bleeding. Review of Systems Review of Systems: ROS unobtainable: Yes unobtainable due to medical condition Constitutional: Constitutional: Denies fever(s) ENT: Reports neck pain Cardiovascular: Cardiovascular: Denies chest pain, Denies pedal edema, Denies lightheadedness and Denies dyspnea Respiratory: Respiratory: Denies chest congestion and Denies dyspnea Gastrointestinal: Gastrointestinal: Denies abdominal pain and Denies hematochezia Musculoskeletal: Musculoskeletal: Reports arthralgias and Reports neck pain Integumentary/Breasts: Skin/Breast: Reports system reviewed and no additional complaints, except as docu Neurologic: Reports system reviewed and no additional complaints, except as documented, Denies behavioral changes and Denies confusion Psychiatric: Psychiatric: Denies behavioral changes and Denies confusion
[2022-04-05] MEDS: FINASTERIDE 5 MG TABLET PO (21:31)
[2022-04-05] MEDS: ATORVASTATIN 5 MG TABLET PO (21:32)
[2022-04-05] MEDS: MELATONIN 3 MG TABLET PO (21:32)
[2022-04-06] VITALS (13 sets, daily range): BP systolic 90–113; BP diastolic 44–74; PULSE 62–100; RESP 17–18; TEMP 36.6–36.7; O2SAT 97–100
[2022-04-06 04:56] LABS: Hematocrit 30.8 % (42.0-52.0); Hemoglobin 9.8 g/dL (14.0-18.0); Immature Platelet Fraction Pct 9.8 % (0.9-11.2); Mean Corpuscular HGB Conc 31.8 g/dl (32-36); Mean Corpuscular Hemoglobin 33.2 pg (26-34); Mean Corpuscular Volume 104.4 fl (80-100); Mean Platelet Volume 11.6 fl (7.4-10.4); Platelet Count Result 144 k/mm3 (150-375); Red Blood Count 2.95 M/mm3 (4.6-6.20); Red Cell Distribution Width 14.3 % (11.5-14.5); White Blood Count 4.4 K/mm3 (4.5-10.0)
[2022-04-06 05:01] LABS: Alanine Aminotransferase 8 U/L (6-50); Albumin Level 2.3 g/dL (3.5-5.1); Alkaline Phosphatase 66 U/L (38-126); Anion Gap 7 mmol/L (8-16); Aspartate Amino Transferase 14 U/L (17-59); Bilirubin,Total 0.4 mg/dL (0.2-1.3); Blood Urea Nitrogen 24 mg/dL (9-20); Calcium 7.5 mg/dL (8.4-10.2); Carbon Dioxide 23 mmol/L (22-30); Chloride 103 mmol/L (98-107); Estimated CRCL calculation 39 ml/min; Estimated Glomerular Filt Rate 44; Glucose 111 mg/dL (65-110); Potassium 3.5 mmol/L (3.4-5.0); Sodium 133 mmol/L (137-145)
[2022-04-06] MEDS: metroNIDAZOLE 250 MG TABLET 500 MG PO ×2 (05:24→13:30)
[2022-04-06] MEDS: METOPROLOL SUCCINATE EXT REL 50 MG TABCR PO (08:09)
[2022-04-06] MEDS: APIXABAN 5 MG TABLET PO (08:10)
[2022-04-06] MEDS: AMOXICILLIN/CLAVULANATE K 875-125 MG TAB 1 TABLET PO (08:10)
[2022-04-06] MEDS: TAMSULOSIN HCL 0.4 MG CAPSULE PO (08:10)
[2022-04-06] MEDS: FERROUS SULFATE 324 MG TABLET PO (08:10)
[2022-04-06] MEDS: ASPIRIN 81 MG CHEWABLE TABLET PO (08:13)
--- NOTE | 2022-04-06 11:52 | P.PNCA_ITS ---
Progress Note: A&P Assessment and Plan (1) Orthostatic hypotension: Code(s): I95.1 - Orthostatic hypotension Status: Acute Assessment and Plan: Hypotension improved with IV fluids yesterday although remains mildly orthostatic with symptoms this morning Will give an additional IV normal saline 250 cc. Reduce Toprol XL to 50 mg daily. Acute kidney injury after receiving losartan with hypotension yesterday. Recheck BMP in a.m.. With IV fluids. Patient has no specific complaints, afebrile no leukocytosis. He is not appear to be septic. Will give IV fluid bolus. Repeat BP repeat if necessary. Repeat urinalysis, chest x-ray if BP remains low. May need to add midodrine if persistent symptomatic hypotension. Unable to resume losartan for supportive LV function. (2) Atrial fibrillation with rapid ventricular response: Code(s): I48.91 - Unspecified atrial fibrillation Status: Acute Assessment and Plan: Heart rate variable, intermittently with RVR fair control. Received Toprol XL 100 mg this morning although remains mildly orthostatic. May need to reduce to 50 mg daily as above. Beta-fannie held continue to monitor on telemetry. Remains on anticoagulation. (3) Acute kidney injury: Code(s): N17.9 - Acute kidney failure, unspecified Status: Acute Assessment and Plan: Recheck BMP in a.m.. If improved, tolerating discontinuation of Maxwell catheter, minimally symptomatic or no symptoms of orthostasis on medical therapy may consider discharge home. (4) Cardiomyopathy: Code(s): I42.9 - Cardiomyopathy, unspecified Status: Acute Assessment and Plan: New diagnosis, not tolerating medical therapy at this time due to hypotension. Continue monitor closely. Unable to tolerate ARB or diuretic therapy. (5) Chest pain: Code(s): R07.9 - Chest pain, unspecified Status: Acute Assessment and Plan: Resolved. No complaints in this regard Subjective Date/time seen: 04/06/22 11:52 Interval history: Follow-up visit in this 87-year-old man with: Admission to the hospital with what appears to have and the clinical picture of sepsis. Patient has a new left bundle branch block and ST segment changes prompting the initial opinion that acute AR was the diagnosis. Angiography was performed as mentioned in my note did not demonstrate any changes in his coronary anatomy compared with last year. Left bundle branch block however appears to be new. He persists in atrial fibrillation during this hospital stay. Has been placed on amiodarone and we are advancing his metoprolol dosage. Patient feels much better. States he feels normal when he got up last night to use the restroom. This morning feels only slightly dizzy for a 2nd. He was borderline orthostatic with his vital signs. Eating and drinking normally. Maxwell catheter remains in place. Given Toprol XL 100 mg this morning, heart rate 80s to 100s. No chest pain, shortness of breath or palpitations. States he does feel better overall. No fevers or chills, no bleeding. Review of Systems Review of Systems: ROS unobtainable: Yes unobtainable due to medical condition Constitutional: Constitutional: Denies fever(s) ENT: Reports neck pain Cardiovascular: Cardiovascular: Denies chest pain, Denies pedal edema, Denies lightheadedness and Denies dyspnea Respiratory: Respiratory: Denies chest congestion and Denies dyspnea Gastrointestinal: Gastrointestinal: Denies abdominal pain and Denies hematochezia Musculoskeletal: Musculoskeletal: Reports arthralgias
--- NOTE | 2022-04-06 14:42 | PM.DS ---
DS: Admitting Diagnosis Discharge Date 04/06/2022 Admitting Diagnosis Chest pain DS: Discharge Diagnosis Discharge Diagnosis (1) Orthostatic hypotension: Code(s): I95.1 - Orthostatic hypotension Status: Acute Assessment and Plan: Hypotension improved with IV fluids. Toprol XL reduced to 50 mg daily. Asymptomatic with getting out of bed to chair this morning. Slight drop in SBP with orthostatic vitals this a.m. Repeat one set of orthostatic vitals. Denies having any dizziness or light headedness since yesterday. (2) Atrial fibrillation with rapid ventricular response: Code(s): I48.91 - Unspecified atrial fibrillation Status: Acute Assessment and Plan: Heart rate variable, intermittently with RVR fair control. Toprol XL reduced to 50mg. Remains on systemic a/c (3) Acute kidney injury: Code(s): N17.9 - Acute kidney failure, unspecified Status: Acute Assessment and Plan: BMP improved this a.m., Tolerating discontinuation of Maxwell catheter. (4) Cardiomyopathy: Code(s): I42.9 - Cardiomyopathy, unspecified Status: Acute Assessment and Plan: New diagnosis, not tolerating medical therapy at this time due to hypotension. Continue monitor closely. Unable to tolerate ARB or diuretic therapy. (5) Chest pain: Code(s): R07.9 - Chest pain, unspecified Status: Acute Assessment and Plan: Resolved. No complaints in this regard DS: Summary Hospital Course Hospital Course: Admission to the hospital with what appeared to have and the clinical picture of sepsis. Patient had a new left bundle branch block and ST segment changes prompting the initial opinion that acute MD was the diagnosis. Angiography was performed and did not demonstrate any changes in his coronary anatomy compared with last year. Left bundle branch block however appears to be new. He persisted in atrial fibrillation during this hospital stay. He was placed on amiodarone and metoprolol. IV amiodarone was discontinued and metoprolol was advanced. Over the weekend he developed symptomatic orthostatic hypotension and was given IV fluids and his beta fannie dosage was reduced. He also developed acute kidney injury after starting losartan which was then discontinued and his BMP was improving this morning. Unfortunately he is unable to tolerate any medical therapy for his cardiomyopathy because of hypotension. Today his blood pressure has improved and he is asymptomatic. Time Spent with Patient Time attestation: Total time spent providing and/or coordinating discharge services: Exam Const: General: cooperative, healthy appearing, comfortable and no acute distress; No confusion Orientation/consciousness: oriented to person, patient oriented x3 and No confusion Other: Bright and alert, pleasant cooperative HENMT: Mouth: Yes moist mucous membranes Other: Lips slightly dry Eyes: Sclera: sclerae normal EOM: EOMs intact bilaterally Neck: Neck: supple and no JVD Resp: Effort & Inspection: normal respiratory effort Auscultation: clear to auscultation bilaterally Cardio: Rate: regular rate Rhythm: regular rhythm and abnormal rhythm irregularly irregular Heart sounds: no murmurs GI: Inspection: normal to inspection Auscultation: normal bowel sounds Skin: General skin exam: normal color Neuro: General: oriented to person, patient oriented x3 and No confusion Other: Alert and oriented Extrem: General: normal to inspection Right lower extremity: edema (mild/mod RLE edema, present yesterday) Left lower extremity: no edema Other: intact DP pulse, foot warm right lower extremity 1+ edema trace left lower extremity Psych: Appearance: grossly normal Mental Status: mental status grossly normal DS: Data Data Completed and Pending Labs on day of discharge: Labs from last 24 hours 04/06/22 04/06/22 04:31 04:31 WBC 4.4 L RBC 2.95 L Hgb 9.8 L
== END 2022-04-06 15:58 | disposition home or self-care (01) | DRG 871 ==
LOC: ANHCATHLAB 10:36 → ANHED 10:36 → ANHICU 15:41 → ANHIMU 04-06 15:07 → ANHICU 04-07 11:46 → ANHIMU 04-07 11:46
PROVIDERS: Internal Medicine; Internal Medicine Cardiovascular Disease; Admitting Provider Specialist; Emergency Provider Emergency Medicine; PCP Internal Medicine; Visit Provider Nurse Practitioner
PROC: 4A023N7 Measurement of Cardiac Sampling and Pressure, Left Heart, Percutaneous Approach (ICD-10-PCS; CPT 93452; principal; 2022-04-01 08:55)
DX: A41.9 Sepsis, unspecified organism (principal); J18.9 Pneumonia, unspecified organism; N17.9 Acute kidney failure, unspecified; I25.10 Atherosclerotic heart disease of native coronary artery without angina pectoris; I25.82 Chronic total occlusion of coronary artery; I50.9 Heart failure, unspecified; I95.1 Orthostatic hypotension; I25.5 Ischemic cardiomyopathy; I48.91 Unspecified atrial fibrillation; R07.89 Other chest pain; E86.0 Dehydration; I44.7 Left bundle-branch block, unspecified; K52.9 Noninfective gastroenteritis and colitis, unspecified; Z20.822 Contact with and (suspected) exposure to COVID-19; Z79.01 Long term (current) use of anticoagulants; Z79.899 Other long term (current) drug therapy; Z95.5 Presence of coronary angioplasty implant and graft; Z98.890 Other specified postprocedural states
CPT/HCPCS: 36415; 71250; 74176; 80053; 80061; 80202; 81001; 82948; 83605; 83735; 84100; 84484; 85025; 85027; 85055; 85610; 85730; 86140; 86850; 86900; 86901; 87040; 93005; 93306; 93458; 93970; 96361; 96374; 97110; 97161; 97165; 97530; 97535; 99291; A9270; C1887; C1894; C9803; J0282; J0461; J0692; J1644; J2250; J3010; J3475; J7030; J7040; J7050; J7060; J7120; P9047; Q9957; U0003; U0005